=== PATIENT | female | born 1930 ===

== ENCOUNTER 2017-02-10 16:41 | Inpatient (IN) | payer OTHER ==
[2017-02-10 16:41] VITALS: BMI 27.4
[2017-02-10 17:50] LABS: ALB/GLOB RATIO 1.1 (1.0-2.1); ALBUMIN 3.6 g/dL (3.5-5.0); ALT/SGPT 149 U/L (9-52); AST/SGOT 271 U/L (14-36); BLOOD UREA NITROGEN 27 mg/dl (7-17); CALCIUM 9.2 mg/dL (8.4-10.2); GFR AFRICAN-AMERICAN 32; GFR NON-AFRICAN AMERICAN 27
[2017-02-10 18:20] LABS: LIPASE < 10 U/L (23-300)
[2017-02-10 18:30] LABS: HEMOGLOBIN 9.2 g/dL (12.0-16.0); MEAN CORPUSCULAR HEMOGLOBIN 26.8 pg (27.0-31.0); MEAN CORPUSCULAR HGB CONC 32.7 g/dL (33.0-37.0); MEAN PLATELET VOLUME 8.9 fl (7.2-11.7); PLATELET COUNT 213 K/uL (130-400); RBC 3.43 Mil/uL (3.80-5.20); RED CELL DISTRIBUTION WIDTH 17.9 % (11.5-14.5); WHITE BLOOD COUNT 3.4 K/uL (4.8-10.8)
[2017-02-10 19:19] LABS: INR 1.2 (0.9-1.2); PARTIAL THROMBOPLASTIN TIME 38.4 Seconds (25.6-37.1); PROTHROMBIN TIME 13.6 Seconds (9.8-13.1)
[2017-02-10 19:22] LABS: BANDS 2 % (0-2); EOSINOPHIL 7 % (0-7); LYMPHOCYTE 36 % (20-50); METAMYELOCYTE 1 % (0-0); MONOCYTE 29 % (0-10); MYELOCYTE 1 % (0-0); NEUTROPHIL 24 % (42-75); PLATELET ESTIMATE NORMAL (NORMAL)
[2017-02-10 19:23] LABS: ANISOCYTOSIS SLIGHT; LARGE PLATELETS PRESENT; MICROCYTOSIS SLIGHT; POIKILOCYTOSIS SLIGHT; SPHEROCYTES SLIGHT; TARGET CELLS SLIGHT
[2017-02-10 19:24] LABS: TOTAL CELLS COUNTED 100
--- NOTE | 2017-02-10 21:44 | ED PDOC ---
HPI: General Adult Time Seen by Provider: 02/10/17 20:54 Chief Complaint (Nursing): Weakness/Neurological Deficit Chief Complaint (Provider): weakness, jaundice x 3 days History Per: Patient, Family () History/Exam Limitations: no limitations Onset/Duration Of Symptoms: Days (x3 days) Current Symptoms Are (Timing): Still Present Additional Complaint(s): 86 y/o female with a past medical history of diabetes, hypertension, and mild dementia who presents to the emergency department accompanied by with a complaint of generalized weakness and jaundice x3 days. Associated with mild diffuse body aches and abdominal pain. As per history from , patient has appearing increasingly yellow and weak over the past several days whereas patient normal ambulates with walker or cane but now steadily declines and needs him to assist her, even when she needs to use the toilet. Reports mild loss of appetite. Denies fever, cough, shortness of breath, and chest pain. PMD: Dr. Celia Tijerina MD Past Medical History Reviewed: Historical Data, Nursing Documentation, Vital Signs Vital Signs: Last Vital Signs Temp 98.9 F 02/10/17 16:42 Pulse 79 02/10/17 18:38 Resp 14 02/10/17 18:38 BP 194/81 H 02/10/17 18:38 Pulse Ox 96 02/11/17 03:10 - Medical History PMH: Diabetes, HTN Denies: Alzheimer's Disease, Anemia, Anxiety, Arthritis, Asthma, Atrial Fibrillation, Bipolar Disorder, Bronchitis, CAD, Cardia Arrhythmia, CHF, COPD, Crohn's Disease, Dementia, Depression, Diverticulitis, Emphysema, Fractures, Gastritis, Gall Bladder Disease, HIV, Hypercholesterolemia, Hyperthyroidism, Hypothyroidism, Kidney Stones, Migraine, Mitral Valve Prolapse, Multiple Sclerosis, Osteoporosis, Pancreatitis, Paranoia, Parkinson's Disease, Peripheral Edema, Pneumonia, Post Traumatic Stress Disorder, Pulmonary Embolism , Chronic Kidney Disease, Rheumatoid Arthritis, Schizophrenia, Seizures, Sickle Cell Disease, Sexually Transmitted Disease, Sleep Apnea, TIA - Surgical History Surgical History: Appendectomy Denies: CABG, Carotid Endarterectomy, Cholecystectomy, Coronary Stent, Pacemaker, Tonsillectomy - Family History Family History: States: No Known Family Hx - Social History Current smoker - smoking cessation education provided: No Alcohol: None Drugs: Denies - Home Medications Home Medications: Ambulatory Orders Medication Instructions Recorded Furosemide [Furosemide] 20 mg PO DAILY 05/03/14 Glimepiride [Amaryl] 4 mg PO DAILY 05/03/14 Insulin Glargine,Hum.rec.anlog 10 unit SC DAILY #0 05/12/14 [Lantus] Enalapril Maleate [Vasotec] 10 mg PO DAILY 02/10/17 Folic Acid [Folic Acid] 1 mg PO DAILY 02/10/17 - Allergies Allergies/Adverse Reactions: Allergies Allergy/AdvReac Type Severity Reaction Status Date / Time No Known Allergies Allergy Verified 05/08/16 08:15 Review of Systems ROS Statement: Except As Marked, All Systems Reviewed And Found Negative Constitutional: Positive for: Weakness (Generalized and juandice), Other (Mild diffuse body pain (myalgias) and mild loss of appetite). Negative for: Fever Cardiovascular: Negative for: Chest Pain Respiratory: Negative for: Cough, Shortness of Breath Gastrointestinal: Positive for: Abdominal Pain Physical Exam - Reviewed Nursing Documentation Reviewed: Yes Vital Signs Reviewed: Yes - Physical Exam Appears: Positive for: Non-toxic, No Acute Distress Head Exam: Positive for: ATRAUMATIC, NORMAL INSPECTION, NORMOCEPHALIC Skin: Positive for: Warm, Dry, Jaundice (Extremely juandice) Eye Exam: Positive for: Other (Conjunctival is pallor. ). Negative for: Normal appearance Neck: Positive for: Normal, Supple Cardiovascular/Chest: Positive for: Regular Rate, Rhythm. Negative for: Murmur Respiratory: Positive for: Normal Breath Sounds. Negative for: Accessory Muscle Use, Respiratory Distress Gastrointestinal/Abdominal: Positive for: Normal Exam, Soft. Negative for: Tenderness Extremity: Positive for: Normal ROM. Negative for: Pedal Edema Neurologic/Psych: Positive for: Alert, Oriented (to person only. As per , it is normal for patient to only be oriented to person and sometimes forgets the date or place. ) - Laboratory Results Result Diagrams: 02/10/17 17:36 02/10/17 17:36 - ECG O2 Sat by Pulse Oximetry: 96 (RA) Pulse Ox Interpretation: Normal Medical Decision Making Medical Decision Making: Time: 2053 Initial impression: Clinical jaundice and weakness Initial plan: --ABO/RH Type STAT --Type and Screen STAT --VBG Shock Panel --Electrocardiogram STAT --Ammonia STAT --Lipase STAT --EKG-ED --AccuCheck --Urinalysis STAT --Abdomen Complete US --Admit to hospital routine on observation for hyperbilirubinemia labs sign for anemia and derangement in liver function test and renal insufficiency that has worsened since her last visit in May 2016. Time: 00:22 US Abdomen FINDINGS: Liver: Fatty infiltration. No mass. Mild intrahepatic ductal dilatation. Gallbladder: No gallstones. No wall thickening. No pericholecystic fluid. No sonographic Greer's sign. Common bile duct: Up to 1.2 cm in diameter. No stones. Pancreas: 4.2 x 4.7 x 3.6 cm hypoechoic lesion about head of pancreas. Kidneys: Normal echogenicity. No hydronephrosis. Spleen: No splenomegaly. Aorta: Unremarkable. No aneurysm. Inferior vena cava: Unremarkable. Free fluid: No significant free fluid. IMPRESSION: 1. Pancreatic lesion with biliary duct dilatation. Recommend MRI . 2. Incidental/non-acute findings are described above. --CXR: no acute disease noted. Time: 00:36 Upon provider reevaluation patient is medically stable and requires no further treatment in the ED at this time. Patient will be admitted to hospital. Counseling was provided and all questions were answered regarding diagnosis and need for follow up with Dr. Fermin, hospital medical records manager. There is agreement to discharge plan. Return if symptoms persist or worsen. Clinical Impression: Pancreatic mass; transaminitis; jaundice Scribe Attestation: Documented by Diana Rich, acting as a scribe for Kal Iniguez MD. Provider Scribe Attestation: All medical record entries made by the Scribe were at my direction and personally dictated by me. I have reviewed the chart and agree that the record accurately reflects my personal performance of the history, physical exam, medical decision making, and the department course for this patient. I have also personally directed, reviewed, and agree with the discharge instructions and disposition. ED OBSERVATION Date of observation admission: 02/10/17 Time of observation admission: 21:23 - Observation admission statement Patient is being placed in observation because:: hyperbilirubinemia - Goals of Observation Goals of observation are:: observation. Disposition - Clinical Impression Clinical Impression: Pancreatic mass, Hyperbilirubinemia, Elevated transaminase level, Jaundice - Patient ED Disposition Is Patient to be Admitted: Yes Discussed With : Cal Fermin Doctor Will See Patient In The: Hospital Counseled Patient/Family Regarding: Studies Performed, Diagnosis, Need For Followup - Disposition Disposition: Transfer of Care Disposition Time: 21:23 Condition: GUARDED - Pt Status Changed To: Hospital Disposition Of: Inpatient - Admit Certification Admit to Inpatient:: After my assessment, the patient will require hospitalization for at least two midnights. This is because of the severity of symptoms shown, intensity of services needed, and/or the medical risk in this patient being treated as an outpatient.
[2017-02-10 22:06] LABS: VENOUS BLOOD GAS BASE EXCESS 3.5 mmol/L (0.0-2.0); VENOUS BLOOD GAS PCO2 40 mmHg (40-60); VENOUS BLOOD GAS PO2 38 mm/Hg (30-55); VENOUS BLOOD PH 7.45 (7.32-7.43)
[2017-02-10 23:37] LABS: SQUAMOUS EPITHIAL 5 /hpf (0-5); URINE BACTERIA OCC (<OCC); URINE BILIRUBIN SMALL (NEGATIVE); URINE BLOOD NEGATIVE (NEGATIVE); URINE CLARITY SLIGHTY-CLOUDY (Clear); URINE COLOR AMBER (YELLOW); URINE GLUCOSE (UA) NEG (Normal); URINE LEUKOCYTE ESTERASE NEG Leu/uL (Negative); URINE NITRATE NEGATIVE (NEGATIVE); URINE PROTEIN 100 mg/dL (NEGATIVE); URINE UROBILINOGEN 0.2-1.0 mg/dL (0.2-1.0)
--- NOTE | 2017-02-11 00:22 | US ---
EXAM: US Abdomen Complete CLINICAL HISTORY: 86 years old, female; Pain and signs and symptoms; Constipation and other: Severe jaundice; Abdominal pain; Epigastric TECHNIQUE: Real-time ultrasound of the abdomen (complete) with image documentation. COMPARISON: No relevant prior studies available. FINDINGS: Liver: Fatty infiltration. No mass. Mild intrahepatic ductal dilatation. Gallbladder: No gallstones. No wall thickening. No pericholecystic fluid. No sonographic Greer's sign. Common bile duct: Up to 1.2 cm in diameter. No stones. Pancreas: 4.2 x 4.7 x 3.6 cm hypoechoic lesion about head of pancreas. Kidneys: Normal echogenicity. No hydronephrosis. Spleen: No splenomegaly. Aorta: Unremarkable. No aneurysm. Inferior vena cava: Unremarkable. Free fluid: No significant free fluid. IMPRESSION: 1. Pancreatic lesion with biliary duct dilatation. Recommend MRI . 2. Incidental/non-acute findings are described above.
--- NOTE | 2017-02-11 01:45 | CP.PCM.HP ---
History of Present Illness - History of Present Illness History of Present Illness: CC: jaundice, malaise, weakness (History via , patient is Japanese speaking) HPI: 86 y/o female with HTN and DM2 among other conditions who presents with jaundice and malaise/weakness. Symptoms started about 3 d ago. There is no n/v/ d. There is no f/c. Patient has never had these symptoms prior. Nothing makes symptoms better or worse. Patient has had some abd pain, but not at this time. Patient/ provide no other history at this time. ROS: minimal review of systems, no positives other than what is above MHx: HTN, DM2 SHx: Hysterectomy Allergies: ?Metformin Medications: As per med rec Family Hx: Per no cancers running in family Social Hx: Lives with , no tobacco, no EtOH Surrogate: Lexa Hall, Present on Admission - Present on Admission Any Indicators Present on Admission: No Past Patient History - Infectious Disease Hx of Infectious Diseases: None - Tetanus Immunizations Tetanus Immunization: Unknown - Past Medical History & Family History Past Medical History?: Yes - Past Social History Alcohol: None Drugs: Denies - CARDIAC Hx Atrial Fibrillation: No Hx Cardia Arrhythmia: No Hx Congestive Heart Failure: No Hx Hypercholesterolemia: No Hx Hypertension: Yes Hx Mitral Valve Prolapse: No Hx Pacemaker: No Hx Peripheral Edema: No - PULMONARY Hx Asthma: No Hx Bronchitis: No Hx Chronic Obstructive Pulmonary Disease (COPD): No Hx Emphysema: No Hx Pneumonia: No Hx Pulmonary Embolism: No Hx Sleep Apnea: No - NEUROLOGICAL Hx Alzheimer's Disease: No Hx Dementia: No Hx Migraine: No Hx Multiple Sclerosis: No Hx Parkinson's Disease: No Hx Seizures: No Hx Transient Ischemic Attacks (TIA): No - HEENT Hx HEENT Problems: Yes Hx Blind: No Hx Cataracts: Yes Hx Deafness: No Hx Difficulty Chewing: No Hx Epistaxis: No Hx Glaucoma: No Hx Macular Degeneration: No - RENAL Hx Chronic Kidney Disease: No Hx Kidney Stones: No - ENDOCRINE/METABOLIC Hx Hyperthyroidism: No Hx Hypothyroidism: No - HEMATOLOGICAL/ONCOLOGICAL Hx Anemia: No Hx Human Immunodeficiency Virus (HIV): No Hx Sickle Cell Disease: No - INTEGUMENTARY Hx Dermatological Problems: No Hx Basil Cell: No Hx Dubon: No Hx Cellulitis: No Hx Eczema: No Hx Melanoma: No Hx Psoriasis: No Hx Squamous Cell: No - MUSCULOSKELETAL/RHEUMATOLOGICAL Hx Arthritis: No Hx Fractures: No Hx Osteoporosis: No Hx Rheumatoid Arthritis: No - GASTROINTESTINAL Hx Crohn's Disease: No Hx Diverticulitis: No Hx Gall Bladder Disease: No Hx Gastritis: No Hx Pancreatitis: No - GENITOURINARY/GYNECOLOGICAL Hx Sexually Transmitted Disorders: No - PSYCHIATRIC Hx Anxiety: No Hx Bipolar Disorder: No Hx Depression: No Hx Paranoia: No Hx Post Traumatic Stress Disorder: No Hx Schizophrenia: No - SURGICAL HISTORY Hx Appendectomy: Yes Hx Carotid Endarterectomy: No Hx Cholecystectomy: No Hx Coronary Artery Bypass Graft: No Hx Coronary Stent: No Hx Tonsillectomy: No - ANESTHESIA Hx Anesthesia: Yes Hx Anesthesia Reactions: No Hx Malignant Hyperthermia: No Meds Allergies/Adverse Reactions: Allergies Allergy/AdvReac Type Severity Reaction Status Date / Time No Known Allergies Allergy Verified 05/08/16 08:15 Physical Exam - Constitutional Appears: No Acute Distress, Cachectic - Head Exam Head Exam: ATRAUMATIC, NORMOCEPHALIC - Eye Exam Eye Exam: EOMI, PERRL - ENT Exam ENT Exam: Mucous Membranes Dry - Neck Exam Neck exam: Positive for: Full Rom - Respiratory Exam Respiratory Exam: Clear to Auscultation Bilateral, NORMAL BREATHING PATTERN - Cardiovascular Exam Cardiovascular Exam: REGULAR RHYTHM, +S1, +S2 - GI/Abdominal Exam GI & Abdominal Exam: Normal Bowel Sounds, Soft - Extremities Exam Extremities exam: Positive for: full ROM, normal inspection, pedal edema - Neurological Exam Neurological exam: Alert, CN II-XII Intact, Oriented x3 - Psychiatric Exam Psychiatric exam: Normal Affect, Normal Mood - Skin Skin Exam: Dry, Warm Additional comments: jaundice Results - Vital Signs Recent Vital Signs: Last Vital Signs Temp 98.9 F 02/10/17 16:42 Pulse 79 02/10/17 18:38 Resp 14 02/10/17 18:38 BP 194/81 H 02/10/17 18:38 Pulse Ox 96 02/11/17 01:00 - Labs Result Diagrams: 02/10/17 17:36 02/10/17 17:36 - Imaging and Cardiology US - abdomen Status: Report reviewed by me (pancreatic lesion, ductal dilation) Assessment & Plan (1) Obstructive jaundice Assessment and Plan: 86 y/o female presenting with pancreatic mass and obstructive jaundice. Also with ARF. 1) Pancreatic mass/obstructive jaundice -- highly suspicious for malignancy -Will order AFP and [id number] -repeat CMP in AM -GI consult in AM -- will likely need MRCP vs. ERCP 2) Acute on possible chronic renal failure -- possibly due to volume depletion -IVF -UA/Lytes/Cr -dose medications renally -Hold minerva/arbs, metformin 3) HTN -- will hold minerva/arbs for now 4) DM2 -- hold metformin; accuchecks achs, SSI, DM diet 5) DVT PPx -- SQ heparin Status: Acute (2) Type 2 diabetes mellitus Status: Chronic Priority: Medium (3) Hypertension Status: Chronic Priority: Medium (4) DVT prophylaxis Status: Acute
[2017-02-11] MEDS: Sodium Chloride 0.9% 1,000 ML IV SCH (03:10)
[2017-02-11 04:05] LABS: SQUAMOUS EPITHIAL 8 /hpf (0-5); URINE BACTERIA RARE (<OCC); URINE BILIRUBIN NEGATIVE (NEGATIVE); URINE BLOOD NEGATIVE (NEGATIVE); URINE CLARITY SLIGHTY-CLOUDY (Clear); URINE COLOR AMBER (YELLOW); URINE GLUCOSE (UA) NEG (Normal); URINE LEUKOCYTE ESTERASE NEG Leu/uL (Negative); URINE NITRATE NEGATIVE (NEGATIVE); URINE PROTEIN 30 mg/dL (NEGATIVE); URINE UROBILINOGEN 0.2-1.0 mg/dL (0.2-1.0)
[2017-02-11 06:29] LABS: HEMOGLOBIN 8.6 g/dL (12.0-16.0); MEAN CELL VOLUME 81.2 fl (81.0-99.0); MEAN CORPUSCULAR HEMOGLOBIN 27.1 pg (27.0-31.0); MEAN CORPUSCULAR HGB CONC 33.4 g/dL (33.0-37.0); RBC 3.19 Mil/uL (3.80-5.20); RED CELL DISTRIBUTION WIDTH 17.8 % (11.5-14.5)
[2017-02-11 06:39] LABS: ALBUMIN 3.2 g/dL (3.5-5.0)
[2017-02-11 06:42] LABS: ALB/GLOB RATIO 0.9 (1.0-2.1)
[2017-02-11 06:43] LABS: CALCIUM 9.2 mg/dL (8.4-10.2)
--- NOTE | 2017-02-11 08:06 | CARD ---
APPROVED REPORT EKG Measurement Heart [id number] <Conclusion> Normal sinus rhythm Left anterior fascicular block Abnormal ECG
[2017-02-11] MEDS: Insulin Lispro (humaLOG) 100 Units/ml Inj SC SCH ×2 (08:46→11:07)
--- NOTE | 2017-02-11 10:30 | RAD ---
HISTORY: admit COMPARISON: 05/03/2014. FINDINGS: LUNGS: The lungs are clear. PLEURA: No significant pleural effusion identified, no pneumothorax apparent. CARDIOVASCULAR: Normal. OSSEOUS STRUCTURES: No significant abnormalities. VISUALIZED UPPER ABDOMEN: Normal. OTHER FINDINGS: None. IMPRESSION: No active pulmonary disease.
--- NOTE | 2017-02-11 12:44 | CP.PCM.CON ---
<Leopoldo Parra - Last Filed: 02/11/17 16:10> History of Present Illness - History of Present Illness History of Present Illness: PGY5 GI Fellow Consult Note Patient is an 86yo female with PMHx significant for uterine cancer s/p hysterecotmy and XRT, prior lumbar compression fx, DM, HTN and OA who presented to the ED with her for generalized weakness and new onset jaundice. Patient is only able to provide a very limited history and is rather lethargic at this time, though arousable. Her daughter is at bedside and unsure about her mother's medical history and thus history is limited to the EMR and what I can obtain at bedside. The patient states that for the past 4 days she has had generalized weakness and malaise. She notes that 3 days [employer] her skin began to change color, becomming more jaundiced each day until her brought her to the ED for further evaluation. She denies any samara abdominal discomfort, nausea, vomiting, diarrhea or recent illness. She denies recent travel. On arrival, an U/S of the abdomen revealed a 4.2x4.7x3.6 lesion in the pancreatic head. An MRCP is pending at this time. PMHx: See HPI PSHx: Appendectomy, hysterectomy FHx: Discussed with patient and she denies any significant family history Social: Denies tobacco, EtOH or illicit drug use Endo: Patient/daughter deny/unsure of prior endoscopic evaluation Review of Systems - Review of Systems Systems not reviewed;Unavailable: Altered Mental Status - Constitutional Constitutional: Lethargy, Malaise. absent: Chills, Fever - EENT Eyes: absent: Change in Vision Nose/Mouth/Throat: absent: Sore Throat - Cardiovascular Cardiovascular: absent: Chest Pain, Dyspnea - Respiratory Respiratory: absent: Cough, Excessive Mucous Production - Gastrointestinal Gastrointestinal: absent: Abdominal Pain, Nausea, Vomiting - Genitourinary Genitourinary: absent: Dysuria, Urinary Frequency, Urinary Urgency - Musculoskeletal Musculoskeletal: Muscle Weakness, Myalgias - Integumentary Integumentary: absent: New Lesions, Rash - Neurological Neurological: absent: Dizziness, Numbness, Focal Weakness - Psychiatric Psychiatric: absent: Anxiety, Depression - Endocrine Endocrine: absent: Polydipsia, Polyphagia, Polyuria - Hematologic/Lymphatic Hematologic: absent: Easy Bleeding, Easy Bruising, Lymphadenopathy Past Patient History - Infectious Disease Hx of Infectious Diseases: None - Tetanus Immunizations Tetanus Immunization: Unknown - Past Medical History & Family History Past Medical History?: Yes - Past Social History Alcohol: None Drugs: Denies - CARDIAC Hx Atrial Fibrillation: No Hx Cardia Arrhythmia: No Hx Congestive Heart Failure: No Hx Hypercholesterolemia: No Hx Hypertension: Yes Hx Mitral Valve Prolapse: No Hx Pacemaker: No Hx Peripheral Edema: No - PULMONARY Hx Asthma: No Hx Bronchitis: No Hx Chronic Obstructive Pulmonary Disease (COPD): No Hx Emphysema: No Hx Pneumonia: No Hx Pulmonary Embolism: No Hx Sleep Apnea: No - NEUROLOGICAL Hx Alzheimer's Disease: No Hx Dementia: No Hx Migraine: No Hx Multiple Sclerosis: No Hx Parkinson's Disease: No Hx Seizures: No Hx Transient Ischemic Attacks (TIA): No - HEENT Hx HEENT Problems: Yes Hx Blind: No Hx Cataracts: Yes Hx Deafness: No Hx Difficulty Chewing: No Hx Epistaxis: No Hx Glaucoma: No Hx Macular Degeneration: No - RENAL Hx Chronic Kidney Disease: No Hx Kidney Stones: No - ENDOCRINE/METABOLIC Hx Hyperthyroidism: No Hx Hypothyroidism: No - HEMATOLOGICAL/ONCOLOGICAL Hx Anemia: No Hx Human Immunodeficiency Virus (HIV): No Hx Sickle Cell Disease: No - INTEGUMENTARY Hx Dermatological Problems: No Hx Basil Cell: No Hx Dubon: No Hx Cellulitis: No Hx Eczema: No Hx Melanoma: No Hx Psoriasis: No Hx Squamous Cell: No - MUSCULOSKELETAL/RHEUMATOLOGICAL Hx Arthritis: No Hx Fractures: No Hx Osteoporosis: No Hx Rheumatoid Arthritis: No - GASTROINTESTINAL Hx Crohn's Disease: No Hx Diverticulitis: No Hx Gall Bladder Disease: No Hx Gastritis: No Hx Pancreatitis: No - GENITOURINARY/GYNECOLOGICAL Hx Sexually Transmitted Disorders: No - PSYCHIATRIC Hx Anxiety: No Hx Bipolar Disorder: No Hx Depression: No Hx Paranoia: No Hx Post Traumatic Stress Disorder: No Hx Schizophrenia: No - SURGICAL HISTORY Hx Appendectomy: Yes Hx Carotid Endarterectomy: No Hx Cholecystectomy: No Hx Coronary Artery Bypass Graft: No Hx Coronary Stent: No Hx Tonsillectomy: No - ANESTHESIA Hx Anesthesia: Yes Hx Anesthesia Reactions: No Hx Malignant Hyperthermia: No Meds Allergies/Adverse Reactions: Allergies Allergy/AdvReac Type Severity Reaction Status Date / Time No Known Allergies Allergy Verified 05/08/16 08:15 - Medications Medications: Current Medications Amlodipine Besylate (Norvasc) 10 mg PO DAILY [facility] Last Admin: 02/11/17 09:08 Dose: 10 mg Heparin Sodium (Porcine) (Heparin) 5,000 units SC Q12 [facility] PRN Reason: Protocol Last Admin: 02/11/17 11:06 Dose: 5,000 units Sodium Chloride (Sodium Chloride 0.9%) 1,000 mls @ 100 mls/hr IV .Q10H [facility] Stop: 02/11/17 21:44 Last Admin: 02/11/17 03:10 Dose: 100 mls/hr Insulin Human Lispro (Humalog) 0 units SC ACHS [facility] PRN Reason: Protocol Last Admin: 02/11/17 08:46 Dose: Not Given Morphine Sulfate (Morphine) 1 mg IVP Q4 PRN PRN Reason: Pain, severe (8-10) Ondansetron HCl (Zofran Inj) 4 mg IVP Q6 PRN PRN Reason: Nausea/Vomiting Physical Exam - Constitutional Appears: Non-toxic, No Acute Distress, Confused - Eye Exam Eye Exam: EOMI, PERRL, Scleral icterus - Respiratory Exam Respiratory Exam: Clear to Auscultation Bilateral. absent: Rales, Rhonchi, Wheezes - Cardiovascular Exam Cardiovascular Exam: RRR, +S1, +S2, Systolic Murmur - GI/Abdominal Exam GI & Abdominal Exam: Normal Bowel Sounds, Soft, Tenderness (RUQ). absent: Distended, Firm, Guarding, Organomegaly, Rigid - Extremities Exam Additional comments: 2+ B/L LE edema - Neurological Exam Neurological exam: Altered - Skin Skin Exam: Dry, Warm Additional comments: jaundice Results - Vital Signs Recent Vital Signs: Last Vital Signs Temp 98.9 F 02/11/17 08:28 Pulse 75 02/11/17 10:40 Resp 16 02/11/17 10:40 BP 152/55 H 02/11/17 10:40 Pulse Ox 96 02/11/17 10:40 - Labs Result Diagrams: 02/11/17 06:00 02/11/17 06:00 Labs: Laboratory Results - last 24 hr 02/11/17 02/11/17 02/11/17 03:40 03:46 06:00 WBC 3.0 L RBC 3.19 L Hgb 8.6 L Hct 25.9 L MCV 81.2 MCH 27.1 MCHC 33.4 RDW 17.8 H Plt Count 220 Sodium Potassium Chloride Carbon Dioxide Anion Gap BUN Creatinine Est GFR ( Amer) Est GFR (Non-Af Amer) POC Glucose (mg/dL) 85 Random Glucose Calcium Total Bilirubin AST ALT Alkaline Phosphatase Total Protein Albumin Globulin Albumin/Globulin Ratio Alpha Fetoprotein Urine Color Sadie Urine Clarity Slighty-cloudy Urine pH 6.0 Ur Specific [place] 1.005 Urine Protein 30 Urine Glucose (UA) Neg Urine Ketones Negative Urine Blood Negative Urine Nitrate Negative Urine Bilirubin Negative Urine Urobilinogen 0.2-1.0 Ur Leukocyte Esterase Neg Urine RBC (Auto) 1 Urine Microscopic WBC 1 Ur Squamous Epith Cells 8 H Urine Bacteria Rare 02/11/17 02/11/17 02/11/17 06:00 06:00 08:14 WBC RBC Hgb Hct MCV MCH MCHC RDW Plt Count Sodium 140 Potassium 4.3 Chloride 106 Carbon Dioxide 26 Anion Gap 13 BUN 26 H Creatinine 1.7 H Est GFR ( Amer) 35 Est GFR (Non-Af Amer) 29 POC Glucose (mg/dL) 119 H Random Glucose 91 Calcium 9.2 Total Bilirubin 23.9 H AST 242 H ALT 136 H Alkaline Phosphatase 906 H Total Protein 6.9 Albumin 3.2 L Globulin 3.7 Albumin/Globulin Ratio 0.9 L Alpha Fetoprotein 1.2 Urine Color Urine Clarity Urine pH Ur Specific [place] Urine Protein Urine Glucose (UA) Urine Ketones Urine Blood Urine Nitrate Urine Bilirubin Urine Urobilinogen Ur Leukocyte Esterase Urine RBC (Auto) Urine Microscopic WBC Ur Squamous Epith Cells Urine Bacteria Assessment & Plan - Assessment and Plan (Free Text) Assessment: Patient is an 86yo female with PMHx significant for DM, HTN and OA who presented to the ED with her for generalized weakness and new onset jaundice -Altered mentation -Pancreatic head lesion on imaging, concerning for malignancy -Obstructive jaundice suspected/hyperbilirubinemia -DM -HTN Plan: -Unclear history; per record, h/o endometrial cancer s/p hysterectomy and XRT -Awaiting MRCP; apparent pancreatic head lesion noted on U/S -Clear liquid diet as tolerated -Vital stable at this time -Check Autoimmune w/u: BINU, AMA, SMA, LKM-Ab -Check Hepatitis serologies -Plan for EUS with FNB/ERCP on Saturday -Consider CT head given AMS - Date & Time Date: 02/11/17 Time: 12:50 <Marietta Jones MD - Last Filed: 02/11/17 16:23> Meds - Medications Medications: Current Medications Amlodipine Besylate (Norvasc) 10 mg PO DAILY [facility] Last Admin: 02/11/17 09:08 Dose: 10 mg Heparin Sodium (Porcine) (Heparin) 5,000 units SC Q12 [facility] PRN Reason: Protocol Last Admin: 02/11/17 11:06 Dose: 5,000 units Sodium Chloride (Sodium Chloride 0.9%) 1,000 mls @ 100 mls/hr IV .Q10H [facility] Stop: 02/11/17 21:44 Last Admin: 02/11/17 03:10 Dose: 100 mls/hr Insulin Human Lispro (Humalog) 0 units SC ACHS [facility] PRN Reason: Protocol Last Admin: 02/11/17 08:46 Dose: Not Given Morphine Sulfate (Morphine) 1 mg IVP Q4 PRN PRN Reason: Pain, severe (8-10) Ondansetron HCl (Zofran Inj) 4 mg IVP Q6 PRN PRN Reason: Nausea/Vomiting Results - Vital Signs Recent Vital Signs: Last Vital Signs Temp 98.9 F 02/11/17 08:28 Pulse 73 02/11/17 14:28 Resp 16 02/11/17 14:28 BP 138/58 L 02/11/17 14:28 Pulse Ox 95 02/11/17 13:59 - Labs Result Diagrams: 02/11/17 06:00 02/11/17 06:00 Labs: Laboratory Results - last 24 hr 02/11/17 02/11/17 02/11/17 03:40 03:46 06:00 WBC 3.0 L RBC 3.19 L Hgb 8.6 L Hct 25.9 L MCV 81.2 MCH 27.1 MCHC 33.4 RDW 17.8 H Plt Count 220 Sodium Potassium Chloride Carbon Dioxide Anion Gap BUN Creatinine Est GFR ( Amer) Est GFR (Non-Af Amer) POC Glucose (mg/dL) 85 Random Glucose Calcium Total Bilirubin AST ALT Alkaline Phosphatase Total Protein Albumin Globulin Albumin/Globulin Ratio Alpha Fetoprotein Urine Color Sadie Urine Clarity Slighty-cloudy Urine pH 6.0 Ur Specific [place] 1.005 Urine Protein 30 Urine Glucose (UA) Neg Urine Ketones Negative Urine Blood Negative Urine Nitrate Negative Urine Bilirubin Negative Urine Urobilinogen 0.2-1.0 Ur Leukocyte Esterase Neg Urine RBC (Auto) 1 Urine Microscopic WBC 1 Ur Squamous Epith Cells 8 H Urine Bacteria Rare 02/11/17 02/11/17 02/11/17 06:00 06:00 08:14 WBC RBC Hgb Hct MCV MCH MCHC RDW Plt Count Sodium 140 Potassium 4.3 Chloride 106 Carbon Dioxide 26 Anion Gap 13 BUN 26 H Creatinine 1.7 H Est GFR ( Amer) 35 Est GFR (Non-Af Amer) 29 POC Glucose (mg/dL) 119 H Random Glucose 91 Calcium 9.2 Total Bilirubin 23.9 H AST 242 H ALT 136 H Alkaline Phosphatase 906 H Total Protein 6.9 Albumin 3.2 L Globulin 3.7 Albumin/Globulin Ratio 0.9 L Alpha Fetoprotein 1.2 Urine Color Urine Clarity Urine pH Ur Specific [place] Urine Protein Urine Glucose (UA) Urine Ketones Urine Blood Urine Nitrate Urine Bilirubin Urine Urobilinogen Ur Leukocyte Esterase Urine RBC (Auto) Urine Microscopic WBC Ur Squamous Epith Cells Urine Bacteria Attending/Attestation - Attestation I have personally seen and examined this patient.: Yes I have fully participated in the care of the patient.: Yes I have reviewed all pertinent clinical information: Yes Notes (Text): 02/11/17 16:21 Patient seen on Gi rounds. This is a 86yo female with PMHx significant for DM, HTN and OA who presented to the ED with her for generalized weakness and new onset jaundice with AMS. Pancreatic lesion on sonogram concerning for pancreatic malignancy pending CT pancreatic protocol. Awaiting MRCP and plan for EUS/ ERCP on saturday. Will send hepatitis and autoimmune serologies. Regular diet as tolerated. Needs CT head in setting of new AMS.
--- NOTE | 2017-02-11 15:54 | MRI ---
PROCEDURE: Magnetic Resonance Cholangiopancreatography HISTORY: Jaundice and pancreatic lesion COMPARISON: Comparison is made to the previous CT study dated 05/03/2014 previous ultrasound of the abdomen dated 02/10/2017. TECHNIQUE: Multiplanar, multisequence MR images of the abdomen were obtained, including heavily T2 weighted MRCP images of the biliary system. Rotating maximum intensity projection images of the biliary system were generated. FINDINGS: MRCP: The common bile duct is mildly dilated at the proximal and midportion. There is sharp cut off in the common bile duct due to pancreatic head mass. There is mild to moderate intrahepatic biliary ductal dilatation. LIVER: The liver is prominent in size demonstrate heterogeneous signal without evidence of discrete mass lesion in this limited noncontrast study. GALLBLADDER: The gallbladder is mildly dilated without evidence of acute cholecystitis or cholelithiasis. SPLEEN: Unremarkable. PANCREAS: Pancreatic head mass is seen measures approximately 4.6 x 4 centimeter and extending to the melissa hepatis region. The pancreatic mass compressing and obstructing the distal CBD. This mass also cannot be from the portal vein. There are severe atrophic changes of the pancreatic body and tail associated with [id number] dilate a figueroa of the main pancreatic duct. ADRENALS: Unremarkable. KIDNEYS: No evidence of hydronephrosis. Cystic lesions seen in both kidneys larger on the right. AORTA: No aneurysm. ASCITES: There is a trace amount of ascites in the upper abdomen. OTHER FINDINGS: Bilateral small pleural effusion larger on the right are also noted. IMPRESSION: Approximately 4.6 x 4 centimeter mass lesion at the pancreatic head compressing on and obstructing the distal common bile duct. [id number] dilated proximal CBD and [id number] intrahepatic biliary ductal dilatation due to obstruction of the distal CBD by pancreatic head mass. The assessment of the upper abdomen solid organs is somewhat limited in this study due to patient's motion and lack of IV contrast administration.
[2017-02-11] MEDS: Morphine 4 MG/ML VIAL IVP PRN (20:32)
[2017-02-11 22:03] LABS: HEPATITIS B SURFACE AG NEGATIVE (NEGATIVE)
[2017-02-11 22:08] LABS: HEPATITIS A IGM NEGATIVE (NEGATIVE)
[2017-02-11 22:10] LABS: HEPATITIS B CORE AB NEGATIVE (NEGATIVE)
[2017-02-11 22:21] LABS: HEPATITIS C ANTIBODY NEGATIVE (NEGATIVE)
[2017-02-12] MEDS: Insulin Lispro (humaLOG) 100 Units/ml Inj SC SCH ×6 (00:19→22:18)
[2017-02-12] MEDS: Sodium Chloride 0.9% 1,000 ML IV SCH (00:19)
[2017-02-12 07:25] LABS: INR 1.5 (0.9-1.2); PROTHROMBIN TIME 16.7 Seconds (9.8-13.1)
[2017-02-12 07:32] LABS: ALBUMIN 3.3 g/dL (3.5-5.0); BILIRUBIN,DIRECT 21.7 mg/ml (0.0-0.4); CALCIUM 8.8 mg/dL (8.4-10.2)
[2017-02-12 08:00] LABS: EOS # 0.1 K/uL (0.0-0.7); EOS % 1.6 % (0.0-4.0); HEMOGLOBIN 8.6 g/dL (12.0-16.0); LYMPH # 2.2 K/uL (1.0-4.3); LYMPH % 68.7 % (20.0-40.0); MEAN CELL VOLUME 82.9 fl (81.0-99.0); MEAN CORPUSCULAR HEMOGLOBIN 27.4 pg (27.0-31.0); MEAN PLATELET VOLUME 8.7 fl (7.2-11.7); MONO # 0.6 K/uL (0.0-0.8); MONO % 17.6 % (0.0-10.0); NEUT # 0.4 K/uL (1.8-7.0); NEUT % 12.1 % (50.0-75.0); NRBC % 0.1 % (0.0-0.0); PLATELET COUNT 236 K/uL (130-400); RBC 3.15 Mil/uL (3.80-5.20); RED CELL DISTRIBUTION WIDTH 18.3 % (11.5-14.5); WHITE BLOOD COUNT 3.2 K/uL (4.8-10.8)
[2017-02-12] MEDS: Morphine 4 MG/ML VIAL IVP PRN ×2 (09:23→14:39)
--- NOTE | 2017-02-12 09:28 | CT ---
PROCEDURE: CT HEAD WITHOUT CONTRAST. HISTORY: AMS COMPARISON: 05/13/2013 TECHNIQUE: Axial computed tomography images were obtained through the head/brain without intravenous contrast. Radiation dose: Total exam DLP = 1185.25 mGy-cm. This CT exam was performed using one or more of the following dose reduction techniques: Automated exposure control, adjustment of the mA and/or kV according to patient size, and/or use of iterative reconstruction technique. FINDINGS: Examination limited secondary to patient inability to cooperate for proper positioning. HEMORRHAGE: No intracranial hemorrhage. BRAIN: No mass effect or edema. Minimal diffuse atrophy less than expected for patient age. Moderate periventricular white matter lucency consistent with age-related microvascular ischemic change. This is slightly increased in extent when compared to prior examination. VENTRICLES: Mild ventriculomegaly likely due to central greater than peripheral atrophy. No change in extent when compared to prior CT examination. No midline shift. CALVARIUM: Unremarkable. PARANASAL SINUSES: Unremarkable as visualized. No significant inflammatory changes. MASTOID AIR CELLS: Unremarkable as visualized. No inflammatory changes. OTHER FINDINGS: None. IMPRESSION: No intracranial mass, hemorrhage or evidence of acute infarct. Chronic white matter ischemic change. Minimal atrophy.
--- NOTE | 2017-02-12 09:35 | CP.PCM.CON ---
History of Present Illness - History of Present Illness History of Present Illness: This patient who is a 26 a few years of age admitted with severe jaundice I was called to see her for abnormal creatinine 1.5-1.6. No history available from the patient however the history from the chart reviewed and the patient examined and the son and the bedside. The son stated that she has been sick for more than a week or serum by changing Color. No history of chronic kidney disease Past medical history and social history as noted in the history and physical examination Review of system as noted with severe jaundice no chest pain complaining of abdominal discomfort Review of Systems - Constitutional Constitutional: absent: Chills - EENT Eyes: As Per HPI Nose/Mouth/Throat: As Per HPI - Cardiovascular Cardiovascular: absent: Chest Pain, Dyspnea, Leg Edema - Respiratory Respiratory: absent: Cough, Dyspnea - Gastrointestinal Gastrointestinal: Abdominal Pain, Bloating, Nausea - Genitourinary Genitourinary: Nocturia - Musculoskeletal Musculoskeletal: Abnormal Gait - Neurological Neurological: As Per HPI Past Patient History - Infectious Disease Hx of Infectious Diseases: None - Tetanus Immunizations Tetanus Immunization: Unknown - Past Medical History & Family History Past Medical History?: Yes - Past Social History Alcohol: None Drugs: Denies - CARDIAC Hx Atrial Fibrillation: No Hx Cardia Arrhythmia: No Hx Congestive Heart Failure: No Hx Hypercholesterolemia: No Hx Hypertension: Yes Hx Mitral Valve Prolapse: No Hx Pacemaker: No Hx Peripheral Edema: No - PULMONARY Hx Asthma: No Hx Bronchitis: No Hx Chronic Obstructive Pulmonary Disease (COPD): No Hx Emphysema: No Hx Pneumonia: No Hx Pulmonary Embolism: No Hx Sleep Apnea: No - NEUROLOGICAL Hx Alzheimer's Disease: No Hx Dementia: No Hx Migraine: No Hx Multiple Sclerosis: No Hx Parkinson's Disease: No Hx Seizures: No Hx Transient Ischemic Attacks (TIA): No - HEENT Hx HEENT Problems: Yes Hx Blind: No Hx Cataracts: Yes Hx Deafness: No Hx Difficulty Chewing: No Hx Epistaxis: No Hx Glaucoma: No Hx Macular Degeneration: No - RENAL Hx Chronic Kidney Disease: No Hx Kidney Stones: No - ENDOCRINE/METABOLIC Hx Hyperthyroidism: No Hx Hypothyroidism: No - HEMATOLOGICAL/ONCOLOGICAL Hx Anemia: No Hx Human Immunodeficiency Virus (HIV): No Hx Sickle Cell Disease: No - INTEGUMENTARY Hx Dermatological Problems: No Hx Basil Cell: No Hx Dubon: No Hx Cellulitis: No Hx Eczema: No Hx Melanoma: No Hx Psoriasis: No Hx Squamous Cell: No - MUSCULOSKELETAL/RHEUMATOLOGICAL Hx Arthritis: No Hx Fractures: No Hx Osteoporosis: No Hx Rheumatoid Arthritis: No - GASTROINTESTINAL Hx Crohn's Disease: No Hx Diverticulitis: No Hx Gall Bladder Disease: No Hx Gastritis: No Hx Pancreatitis: No - GENITOURINARY/GYNECOLOGICAL Hx Sexually Transmitted Disorders: No - PSYCHIATRIC Hx Anxiety: No Hx Bipolar Disorder: No Hx Depression: No Hx Paranoia: No Hx Post Traumatic Stress Disorder: No Hx Schizophrenia: No - SURGICAL HISTORY Hx Appendectomy: Yes Hx Carotid Endarterectomy: No Hx Cholecystectomy: No Hx Coronary Artery Bypass Graft: No Hx Coronary Stent: No Hx Tonsillectomy: No - ANESTHESIA Hx Anesthesia: Yes Hx Anesthesia Reactions: No Hx Malignant Hyperthermia: No Meds Allergies/Adverse Reactions: Allergies Allergy/AdvReac Type Severity Reaction Status Date / Time No Known Allergies Allergy Verified 05/08/16 08:15 - Medications Medications: Current Medications Amlodipine Besylate (Norvasc) 10 mg PO DAILY [facility] Last Admin: 02/12/17 09:30 Dose: 10 mg Atenolol (Tenormin) 25 mg PO DAILY [facility] Heparin Sodium (Porcine) (Heparin) 5,000 units SC Q12 [facility] PRN Reason: Protocol Last Admin: 02/12/17 09:29 Dose: 5,000 units Insulin Human Lispro (Humalog) 0 units SC ACHS [facility] PRN Reason: Protocol Last Admin: 02/12/17 08:30 Dose: Not Given Morphine Sulfate (Morphine) 1 mg IVP Q4 PRN PRN Reason: Pain, severe (8-10) Last Admin: 02/12/17 09:23 Dose: 1 mg Ondansetron HCl (Zofran Inj) 4 mg IVP Q6 PRN PRN Reason: Nausea/Vomiting Physical Exam - Constitutional Appears: No Acute Distress - ENT Exam ENT Exam: Mucous Membranes Moist - Respiratory Exam Respiratory Exam: NORMAL BREATHING PATTERN. absent: Chest Wall Tenderness, Rales - Cardiovascular Exam Cardiovascular Exam: REGULAR RHYTHM. absent: Rubs - GI/Abdominal Exam GI & Abdominal Exam: Guarding - Extremities Exam Extremities exam: Negative for: calf tenderness - Back Exam Back exam: absent: CVA tenderness (L), CVA tenderness (R) - Neurological Exam Neurological exam: Altered Results - Vital Signs Recent Vital Signs: Last Vital Signs Temp 98.7 F 02/12/17 08:46 Pulse 79 02/12/17 09:30 Resp 20 02/12/17 08:46 BP 177/65 H 02/12/17 09:30 Pulse Ox 97 02/12/17 08:46 - Labs Result Diagrams: 02/12/17 06:50 02/12/17 06:50 Labs: Laboratory Results - last 24 hr 02/11/17 02/11/17 02/11/17 06:00 06:00 18:29 WBC RBC Hgb Hct MCV MCH MCHC RDW Plt Count MPV Neut % (Auto) Lymph % (Auto) [place] % (Auto) Eos % (Auto) Baso % (Auto) Neut # Lymph # [place] # Eos # Baso # PT INR Sodium Potassium Chloride Carbon Dioxide Anion Gap BUN Creatinine Est GFR ( Amer) Est GFR (Non-Af Amer) POC Glucose (mg/dL) 113 H Random Glucose Calcium Total Bilirubin Direct Bilirubin AST ALT Alkaline Phosphatase Total Protein Albumin Globulin Albumin/Globulin Ratio Alpha Fetoprotein 1.2 CA 19-9 Antigen 951 H Hepatitis A IgM Ab Hep Bs Antigen Hep B Core IgM Ab Hepatitis C Antibody 02/11/17 02/12/17 02/12/17 18:41 06:50 06:50 WBC RBC Hgb Hct MCV MCH MCHC RDW Plt Count MPV Neut % (Auto) Lymph % (Auto) [place] % (Auto) Eos % (Auto) Baso % (Auto) Neut # Lymph # [place] # Eos # Baso # PT 16.7 H INR 1.5 H Sodium 142 Potassium 4.3 Chloride 108 H Carbon Dioxide 19 L Anion Gap 19 BUN 25 H Creatinine 1.6 H Est GFR ( Amer) 37 Est GFR (Non-Af Amer) 31 POC Glucose (mg/dL) Random Glucose 112 H Calcium 8.8 Total Bilirubin 24.1 H Direct Bilirubin 21.7 H AST 204 H ALT 130 H Alkaline Phosphatase 1003 H Total Protein 6.7 Albumin 3.3 L Globulin 3.4 Albumin/Globulin Ratio 1.0 Alpha Fetoprotein CA 19-9 Antigen Hepatitis A IgM Ab Negative Hep Bs Antigen Negative Hep B Core IgM Ab Negative Hepatitis C Antibody Negative 02/12/17 02/12/17 06:50 06:58 WBC 3.2 L RBC 3.15 L Hgb 8.6 L Hct 26.2 L MCV 82.9 MCH 27.4 MCHC 33.0 RDW 18.3 H Plt Count 236 MPV 8.7 Neut % (Auto) 12.1 L Lymph % (Auto) 68.7 H [place] % (Auto) 17.6 H Eos % (Auto) 1.6 Baso % (Auto) 0.0 Neut # 0.4 L Lymph # 2.2 [place] # 0.6 Eos # 0.1 Baso # 0.0 PT INR Sodium Potassium Chloride Carbon Dioxide Anion Gap BUN Creatinine Est GFR ( Amer) Est GFR (Non-Af Amer) POC Glucose (mg/dL) 132 H Random Glucose Calcium Total Bilirubin Direct Bilirubin AST ALT Alkaline Phosphatase Total Protein Albumin Globulin Albumin/Globulin Ratio Alpha Fetoprotein CA 19-9 Antigen Hepatitis A IgM Ab Hep Bs Antigen Hep B Core IgM Ab Hepatitis C Antibody Assessment & Plan (1) Acute kidney failure Assessment and Plan: Patient appeared to be admitted to his advance jaundice total bilirubin about 24 and abnormal liver enzyme function very high including the rising alkaline phosphatase. With the pancreatic head movements as noted on the radiology, presented also with abnormal rising creatinine with low specific gravity of the urine probably consistent with the acute kidney injury most likely although serum creatinine improving somewhat came down today. Patient major problem at the present is a pancreatic mass and the obstructive jaundice which the anemia evaluated and we will monitor the kidney function Status: Acute (2) Elevated transaminase level Status: Acute (3) Jaundice Status: Acute (4) Obstructive jaundice Status: Acute (5) Pancreatic mass Status: Acute
--- NOTE | 2017-02-12 12:13 | CP.PCM.PN ---
Subjective - Date & Time of Evaluation Date of Evaluation: 02/12/17 Time of Evaluation: 11:30 - Subjective Subjective: No feve no N/Vr complains of sl headache mild abd discomfort generalized aches and pain no CP no SOB constipation x 4 days Objective - Vital Signs/Intake and Output Vital Signs (last 24 hours): Temp Pulse Resp BP Pulse Ox 98.7 F 79 20 177/65 H 97 02/12/17 08:46 02/12/17 09:30 02/12/17 08:46 02/12/17 09:30 02/12/17 08:46 Intake and Output: 02/12/17 02/12/17 06:59 18:59 Intake Total 1200 Balance 1200 - Medications Medications: Current Medications Amlodipine Besylate (Norvasc) 10 mg PO DAILY [facility] Last Admin: 02/12/17 09:30 Dose: 10 mg Atenolol (Tenormin) 25 mg PO DAILY [facility] Heparin Sodium (Porcine) (Heparin) 5,000 units SC Q12 ISHAN PRN Reason: Protocol Last Admin: 02/12/17 09:29 Dose: 5,000 units Insulin Human Lispro (Humalog) 0 units SC ACHS ISHAN PRN Reason: Protocol Last Admin: 02/12/17 08:30 Dose: Not Given Morphine Sulfate (Morphine) 2 mg IVP Q4 PRN PRN Reason: Pain, severe (8-10) Ondansetron HCl (Zofran Inj) 4 mg IVP Q6 PRN PRN Reason: Nausea/Vomiting - Labs Labs: 02/12/17 06:50 02/12/17 06:50 PT 16.7 Seconds (9.8-13.1) H 02/12/17 06:50 INR 1.5 (0.9-1.2) H 02/12/17 06:50 APTT 38.4 Seconds (25.6-37.1) H 02/10/17 18:50 - Constitutional Appears: No Acute Distress, Chronically Ill, Other (jaundiced) - Head Exam Head Exam: NORMAL INSPECTION, NORMOCEPHALIC - Eye Exam Eye Exam: Scleral icterus Pupil Exam: NORMAL ACCOMODATION - ENT Exam ENT Exam: Mucous Membranes Dry, Normal External Ear Exam - Neck Exam Neck Exam: Full ROM. absent: Meningismus - Respiratory Exam Respiratory Exam: Rhonchi, NORMAL BREATHING PATTERN. absent: Respiratory Distress - Cardiovascular Exam Cardiovascular Exam: REGULAR RHYTHM, +S1, +S2 - GI/Abdominal Exam GI & Abdominal Exam: Soft, Tenderness, Normal Bowel Sounds - Extremities Exam Extremities Exam: Normal Capillary Refill, Pedal Edema. absent: Calf Tenderness - Back Exam Back Exam: absent: CVA tenderness (L), CVA tenderness (R), vertebral tenderness - Neurological Exam Neurological Exam: Alert, Awake, CN II-XII Intact Additional comments: oriented to person and place - Psychiatric Exam Psychiatric exam: Flat Affect - Skin Skin Exam: Dry, Warm Additional comments: jaundiced Assessment and Plan (1) Pancreatic mass Status: Acute (2) Obstructive jaundice Status: Acute (3) Abnormal LFTs (liver function tests) Status: Acute (4) Acute kidney failure Status: Acute (5) Hypertension Status: Chronic (6) Type 2 diabetes mellitus Status: Chronic (7) Anemia, chronic disease Status: Chronic (8) DVT prophylaxis Status: Acute - Assessment and Plan (Free Text) Assessment: 86 y/o lady with hx of HTN, DM, CKD, came in bec of abd discomfort and jaundice. Pt found to have Pancreatic mass. GI consulted - plan for EUS with biopsy /ERCP. (1) Pancreatic mass Status: Acute very suspicious for malignancy elevated CA 19.9 MRCP:Approximately 4.6 x 4 centimeter mass lesion at the pancreatic head compressing on and obstructing the distal common bile duct. Mildly-to- moderately dilated proximal CBD and [id number] intrahepatic biliary ductal dilatation due to obstruction of the distal CBD by pancreatic head mass. GI consulted Plan for EUS/ERCP in am (2) Obstructive jaundice sec to compression of CBD by pancreatic mass Status: Acute (3) Abnormal LFTs (liver function tests) Status: Acute (4) Acute kidney failure Status: Acute (5) Hypertension uncontrolled Status: Chronic started Norvasc and Atenolol ECHO: EF=45%, mod Pulm HTN low to mod cardiac risk for low risk procedure (6) Type 2 diabetes mellitus Status: Chronic accucheck with coverage hold any hypoglycemics for now as pt NPO (7) Anemia, chronic disease Status: Chronic hgb=8.6 (8) DVT prophylaxis Status: Acute d/c Heparin - pt sched for procedure in am
--- NOTE | 2017-02-12 12:27 | CP.PCM.PN ---
Subjective - Date & Time of Evaluation Date of Evaluation: 02/12/17 Time of Evaluation: 12:00 - Subjective Subjective: Patient seen at bedside with family member. More alert today. Jaundiced. Decreased appetite and denies nausea, vomiting. Afebrile Objective - Vital Signs/Intake and Output Vital Signs (last 24 hours): Temp Pulse Resp BP Pulse Ox 98.7 F 79 20 177/65 H 97 02/12/17 08:46 02/12/17 09:30 02/12/17 08:46 02/12/17 09:30 02/12/17 08:46 Intake and Output: 02/12/17 02/12/17 06:59 18:59 Intake Total 1200 Balance 1200 - Medications Medications: Current Medications Amlodipine Besylate (Norvasc) 10 mg PO DAILY [facility] Last Admin: 02/12/17 09:30 Dose: 10 mg Atenolol (Tenormin) 25 mg PO DAILY [facility] Heparin Sodium (Porcine) (Heparin) 5,000 units SC Q12 ISHAN PRN Reason: Protocol Last Admin: 02/12/17 12:10 Dose: Not Given Insulin Human Lispro (Humalog) 0 units SC ACHS ISHAN PRN Reason: Protocol Last Admin: 02/12/17 08:30 Dose: Not Given Morphine Sulfate (Morphine) 2 mg IVP Q4 PRN PRN Reason: Pain, severe (8-10) Ondansetron HCl (Zofran Inj) 4 mg IVP Q6 PRN PRN Reason: Nausea/Vomiting Tramadol HCl (Ultram) 50 mg PO Q4 PRN PRN Reason: Pain, moderate (4-7) - Labs Labs: 02/12/17 06:50 02/12/17 06:50 PT 16.7 Seconds (9.8-13.1) H 02/12/17 06:50 INR 1.5 (0.9-1.2) H 02/12/17 06:50 APTT 38.4 Seconds (25.6-37.1) H 02/10/17 18:50 - Constitutional Appears: Well, Non-toxic, No Acute Distress - Head Exam Additional comments: Jaundice + - Eye Exam Eye Exam: Scleral icterus - ENT Exam ENT Exam: Mucous Membranes Moist, Normal Exam - Neck Exam Neck Exam: Full ROM, Normal Inspection - Respiratory Exam Respiratory Exam: Clear to Ausculation Bilateral, NORMAL BREATHING PATTERN - Cardiovascular Exam Cardiovascular Exam: REGULAR RHYTHM, RRR, +S1, +S2 - GI/Abdominal Exam GI & Abdominal Exam: Soft, Normal Bowel Sounds Additional comments: No rigidity, guarding or hernia - Extremities Exam Extremities Exam: Full ROM, Normal Inspection - Back Exam Back Exam: NORMAL INSPECTION - Neurological Exam Neurological Exam: Alert, Awake - Psychiatric Exam Psychiatric exam: Normal Affect, Normal Mood - Skin Skin Exam: Dry, Intact Assessment and Plan - Assessment and Plan (Free Text) Assessment: Patient is an 86yo female with PMHx significant for DM, HTN and OA and endometrial CA who presented to the ED with her for generalized weakness and new onset jaundice Plan: - MRCP reviewed- apparent pancreatic head lesion with mild to moderate proximal CBD and PD dilatation -Clear liquid diet as tolerated -Check Autoimmune w/u: BINU, AMA, SMA, LKM-Ab - Hepatitis serologies negative -Plan for EUS with FNB/ERCP on Saturday at [place] - Transport to be called at noon - Please send PT, INR in am in setting of pending biopsy - Ct head unremarkable - Will follow after biopsy
[2017-02-12 12:29] LABS: ANISOCYTOSIS SLIGHT; BASOPHIL 1 % (0-2); EOSINOPHIL 7 % (0-7); LYMPHOCYTE 37 % (20-50); MONOCYTE 21 % (0-10); NEUTROPHIL 34 % (42-75); PLATELET ESTIMATE NORMAL (NORMAL); TOTAL CELLS COUNTED 100
[2017-02-12 12:30] LABS: PLATELET CLUMPS PRESENT; TARGET CELLS SLIGHT
--- NOTE | 2017-02-12 15:04 | CARD ---
APPROVED REPORT EXAM: Two-dimensional and M-mode echocardiogram with Doppler and color Doppler. Other Information Quality : GoodRhythm : NSR INDICATION Pre-Op LV Function:SystolicDiastolic 2D DIMENSIONS IVSd1.21 (0.7-1.1cm)LVDd5.00 (3.9-5.9cm) LVOT Diameter1.90 (1.8-2.4cm)PWd1.16 (0.7-1.1cm) IVSs1.62 (0.8-1.2cm)LVDs4.10 (2.5-4.0cm) FS (%) 17.9 %PWs1.41 (0.8-1.2cm) M-Mode DIMENSIONS Left Atrium (MM)5.21 (2.5-4.0cm)IVSd1.12 (0.7-1.1cm) Aortic Root2.91 (2.2-3.7cm)LVDd5.76 (4.0-5.6cm) Aortic Cusp Exc.1.50 (1.5-2.0cm)PWd1.12 (0.7-1.1cm) IVSs1.65 cmFS (%) 30 % LVDs4.03 (2.0-3.8cm)PWs1.06 cm Aortic Valve AoV Peak Auikgfya784.3cm/sAoV VTI59.9cmAO Peak GR.32mmHg LVOT Peak Eeeyamut68.5cm/sLVOT VTI23.57cmAO Mean GR.19mmHg ODILON (VMAX)0.92hy4NME (VTI)0.18ij4VY P 1/2 Pvzt040dv Mitral Valve MV E Pnsyniom169.5cm/sMV DECEL [id number] A Byghuscw034.0cm/s MV DGZ98vxW/A ratio0.9MVA (PHT)4.82cm2 TDI Lateral E' Peak V4.32cm/sMedial E' Peak V5.79cm/sE/Lateral E'27.7 E/Medial E'20.6 Pulmonary Valve PV Peak Pooncofh432.7cm/s Tricuspid Valve TR Peak Idrcpkgx956zs/sRAP DVRCYRWH19rnYxRX Peak Gr.33mmHg UVAB68hfZk LEFT VENTRICLE The left ventricle is normal size. There is mild concentric left ventricular hypertrophy. Left ventricle systolic function is borderline. The Ejection Fraction is 45-50%. Adequate LV contractility. Transmitral Doppler flow pattern is Grade I-abnormal relaxation pattern. RIGHT VENTRICLE The right ventricle is normal size. There is normal right ventricular wall thickness. The right ventricular systolic function is normal. ATRIA The left atrium is mildly dilated. The right atrium size is normal. AORTIC VALVE The aortic valve is moderately sclerotic. There is mild aortic regurgitation. There is mild valvular aortic stenosis. maximum pressure gradient of 29 mmHg and mean pressure gradient of 17 mmHg. MITRAL VALVE Mitral annular calcification is mild to moderate. There is no evidence of mitral valve prolapse. There is no mitral valve stenosis. Mitral regurgitation is moderate to severe. TRICUSPID VALVE The tricuspid valve is normal in structure. There is mild to moderate tricuspid regurgitation. Right ventricular systolic pressure is estimated at 45 mmHg. There is moderate pulmonary hypertension. PULMONIC VALVE The pulmonary valve is normal in structure and function. There is no pulmonic valvular regurgitation. GREAT VESSELS The aortic root is normal in size. The IVC was not visualized. PERICARDIAL EFFUSION The pericardium appears normal. <Conclusion> The left ventricle is normal size. There is mild concentric left ventricular hypertrophy. Adequate LV contractility. Left ventricle systolic function is borderline. The Ejection Fraction is 45-50%. Transmitral Doppler flow pattern is Grade I-abnormal relaxation pattern. The left atrium is mildly dilated. The aortic valve is moderately sclerotic. There is mild valvular aortic stenosis. Mitral regurgitation is moderate to severe. There is mild to moderate tricuspid regurgitation. There is moderate pulmonary hypertension.
[2017-02-12 19:07] LABS: MEAN CORPUSCULAR HEMOGLOBIN 26.6 pg (27.0-31.0); MEAN CORPUSCULAR HGB CONC 31.3 g/dL (33.0-37.0); RBC 2.64 Mil/uL (3.80-5.20); RED CELL DISTRIBUTION WIDTH 18.4 % (11.5-14.5); WHITE BLOOD COUNT 3.8 K/uL (4.8-10.8)
[2017-02-12 19:29] LABS: ALB/GLOB RATIO 0.9 (1.0-2.1); ALBUMIN 2.4 g/dL (3.5-5.0); CALCIUM 6.6 mg/dL (8.4-10.2)
[2017-02-12 19:58] LABS: INR 1.9 (0.9-1.2); PROTHROMBIN TIME 21.5 Seconds (9.8-13.1)
[2017-02-13] MEDS: Insulin Lispro (humaLOG) 100 Units/ml Inj SC SCH ×4 (06:34→21:55)
[2017-02-13 07:31] LABS: ALB/GLOB RATIO 0.9 (1.0-2.1); ALBUMIN 3.4 g/dL (3.5-5.0); CALCIUM 9.2 mg/dL (8.4-10.2)
[2017-02-13 07:36] LABS: INR 1.6 (0.9-1.2); PROTHROMBIN TIME 18.5 Seconds (9.8-13.1)
[2017-02-13] MEDS ORDERED: Phytonadione 10 mg/ml Inj (Adult) SC ONE (08:20)
[2017-02-13 08:33] LABS: EOS # 0.1 K/uL (0.0-0.7); EOS % 0.9 % (0.0-4.0); HEMOGLOBIN 10.6 g/dL (12.0-16.0); MEAN CORPUSCULAR HEMOGLOBIN 27.5 pg (27.0-31.0); MEAN CORPUSCULAR HGB CONC 32.4 g/dL (33.0-37.0); MEAN PLATELET VOLUME 8.9 fl (7.2-11.7); MONO # 1.5 K/uL (0.0-0.8); MONO % 23.1 % (0.0-10.0); NEUT # 2.8 K/uL (1.8-7.0); RBC 3.86 Mil/uL (3.80-5.20); RED CELL DISTRIBUTION WIDTH 16.7 % (11.5-14.5); WHITE BLOOD COUNT 6.4 K/uL (4.8-10.8)
--- NOTE | 2017-02-13 10:20 | CP.PCM.CON ---
History of Present Illness - History of Present Illness History of Present Illness: Patient is an 86yo female with PMHx significant for uterine cancer s/p hysterecotmy and XRT, prior lumbar compression fx, DM, HTN and OA who presented to the ED with her for generalized weakness and new onset jaundice. Patient is only able to provide a very limited history and is rather lethargic at this time, though arousable. Her daughter is at bedside and unsure about her mother's medical history and thus history is limited to the EMR and what I can obtain at bedside. The patient states that for the past 4 days she has had generalized weakness and malaise. She notes that 3 days [employer] her skin began to change color, becoming more jaundiced each day until her brought her to the ED for further evaluation. She denies any samara abdominal discomfort, nausea, vomiting, diarrhea or recent illness. She denies recent travel. On arrival, an U/S of the abdomen revealed a 4.2x4.7x3.6 lesion in the pancreatic head. An MRCP is pending at this time. Pancreatic Mass, Jaundice Hypertensive Urgency Chronic Anemia prob sec to Malignancy IMELDA vs CKD stage III EKG: normal Echo: [facility] EF: 45-50% Mild MR/TR PH Past Patient History - Infectious Disease Hx of Infectious Diseases: None - Tetanus Immunizations Tetanus Immunization: Unknown - Past Medical History & Family History Past Medical History?: Yes - Past Social History Alcohol: None Drugs: Denies - CARDIAC Hx Atrial Fibrillation: No Hx Cardia Arrhythmia: No Hx Congestive Heart Failure: No Hx Hypercholesterolemia: No Hx Hypertension: Yes Hx Mitral Valve Prolapse: No Hx Pacemaker: No Hx Peripheral Edema: No - PULMONARY Hx Asthma: No Hx Bronchitis: No Hx Chronic Obstructive Pulmonary Disease (COPD): No Hx Emphysema: No Hx Pneumonia: No Hx Pulmonary Embolism: No Hx Sleep Apnea: No - NEUROLOGICAL Hx Alzheimer's Disease: No Hx Dementia: No Hx Migraine: No Hx Multiple Sclerosis: No Hx Parkinson's Disease: No Hx Seizures: No Hx Transient Ischemic Attacks (TIA): No - HEENT Hx HEENT Problems: Yes Hx Blind: No Hx Cataracts: Yes Hx Deafness: No Hx Difficulty Chewing: No Hx Epistaxis: No Hx Glaucoma: No Hx Macular Degeneration: No - RENAL Hx Chronic Kidney Disease: No Hx Kidney Stones: No - ENDOCRINE/METABOLIC Hx Hyperthyroidism: No Hx Hypothyroidism: No - HEMATOLOGICAL/ONCOLOGICAL Hx Anemia: No Hx Human Immunodeficiency Virus (HIV): No Hx Sickle Cell Disease: No - INTEGUMENTARY Hx Dermatological Problems: No Hx Basil Cell: No Hx Dubon: No Hx Cellulitis: No Hx Eczema: No Hx Melanoma: No Hx Psoriasis: No Hx Squamous Cell: No - MUSCULOSKELETAL/RHEUMATOLOGICAL Hx Arthritis: No Hx Fractures: No Hx Osteoporosis: No Hx Rheumatoid Arthritis: No - GASTROINTESTINAL Hx Crohn's Disease: No Hx Diverticulitis: No Hx Gall Bladder Disease: No Hx Gastritis: No Hx Pancreatitis: No - GENITOURINARY/GYNECOLOGICAL Hx Sexually Transmitted Disorders: No - PSYCHIATRIC Hx Anxiety: No Hx Bipolar Disorder: No Hx Depression: No Hx Paranoia: No Hx Post Traumatic Stress Disorder: No Hx Schizophrenia: No - SURGICAL HISTORY Hx Appendectomy: Yes Hx Carotid Endarterectomy: No Hx Cholecystectomy: No Hx Coronary Artery Bypass Graft: No Hx Coronary Stent: No Hx Tonsillectomy: No - ANESTHESIA Hx Anesthesia: Yes Hx Anesthesia Reactions: No Hx Malignant Hyperthermia: No Meds Allergies/Adverse Reactions: Allergies Allergy/AdvReac Type Severity Reaction Status Date / Time No Known Allergies Allergy Verified 05/08/16 08:15 - Medications Medications: Current Medications Amlodipine Besylate (Norvasc) 10 mg PO DAILY [facility] Last Admin: 02/13/17 09:04 Dose: 10 mg Atenolol (Tenormin) 50 mg PO DAILY [facility] Last Admin: 02/13/17 09:05 Dose: 50 mg Docusate Sodium (Colace) 100 mg PO BID [facility] Last Admin: 02/13/17 08:11 Dose: Not Given Hydralazine HCl (Apresoline) 10 mg IV Q6 PRN PRN Reason: Systolic Blood Pressure Insulin Human Lispro (Humalog) 0 units SC [facility] PRN Reason: Protocol Last Admin: 02/13/17 06:34 Dose: Not Given Morphine Sulfate (Morphine) 2 mg IVP Q4 PRN PRN Reason: Pain, severe (8-10) Last Admin: 02/12/17 14:39 Dose: 2 mg Ondansetron HCl (Zofran Inj) 4 mg IVP Q6 PRN PRN Reason: Nausea/Vomiting Tramadol HCl (Ultram) 50 mg PO Q4 PRN PRN Reason: Pain, moderate (4-7) Last Admin: 02/12/17 12:23 Dose: 50 mg Results - Vital Signs Recent Vital Signs: Last Vital Signs Temp 97.7 F 02/13/17 07:50 Pulse 74 02/13/17 09:05 Resp 20 02/13/17 07:50 BP 182/65 H 02/13/17 09:05 Pulse Ox 99 02/13/17 07:50 - Labs Result Diagrams: 02/13/17 09:30 02/13/17 05:35 Labs: Laboratory Results - last 24 hr 02/11/17 02/11/17 02/12/17 18:41 18:41 06:50 WBC RBC Hgb Hct MCV MCH MCHC RDW Plt Count MPV Neut % (Auto) Lymph % (Auto) [place] % (Auto) Eos % (Auto) Baso % (Auto) Neut # Lymph # [place] # Eos # Baso # Neutrophils % (Manual) 34 L Lymphocytes % (Manual) 37 Monocytes % (Manual) 21 H Eosinophils % (Manual) 7 Basophils % (Manual) 1 Platelet Estimate Normal Plt Clumps, EDTA Present Anisocytosis (manual) Slight Target Cells Slight PT INR Sodium Potassium Chloride Carbon Dioxide Anion Gap BUN Creatinine Est GFR ( Amer) Est GFR (Non-Af Amer) POC Glucose (mg/dL) Random Glucose Calcium Total Bilirubin AST ALT Alkaline Phosphatase Ammonia Total Protein Albumin Globulin Albumin/Globulin Ratio IgG 811.6 BINU Screen Negative Anti-Mitochondrial Ab Negative Blood Type Antibody Screen Crossmatch BBK History Checked 02/12/17 02/12/17 02/12/17 11:32 15:39 18:15 WBC RBC Hgb Hct MCV MCH MCHC RDW Plt Count MPV Neut % (Auto) Lymph % (Auto) [place] % (Auto) Eos % (Auto) Baso % (Auto) Neut # Lymph # [place] # Eos # Baso # Neutrophils % (Manual) Lymphocytes % (Manual) Monocytes % (Manual) Eosinophils % (Manual) Basophils % (Manual) Platelet Estimate Plt Clumps, EDTA Anisocytosis (manual) Target Cells PT INR Sodium Potassium Chloride Carbon Dioxide Anion Gap BUN Creatinine Est GFR ( Amer) Est GFR (Non-Af Amer) POC Glucose (mg/dL) 153 H 261 H Random Glucose Calcium Total Bilirubin AST ALT Alkaline Phosphatase Ammonia Total Protein Albumin Globulin Albumin/Globulin Ratio IgG BINU Screen Anti-Mitochondrial Ab Blood Type O POSITIVE Antibody Screen Negative Crossmatch See Detail BBK History Checked Patient has bt 02/12/17 02/12/17 02/12/17 19:04 19:04 19:04 WBC 3.8 L RBC 2.64 L Hgb 7.0 L Hct 22.5 L MCV 85.0 D MCH 26.6 L MCHC 31.3 L RDW 18.4 H Plt Count 193 MPV Neut % (Auto) Lymph % (Auto) [place] % (Auto) Eos % (Auto) Baso % (Auto) Neut # Lymph # [place] # Eos # Baso # Neutrophils % (Manual) Lymphocytes % (Manual) Monocytes % (Manual) Eosinophils % (Manual) Basophils % (Manual) Platelet Estimate Plt Clumps, EDTA Anisocytosis (manual) Target Cells PT 21.5 H INR 1.9 H Sodium Potassium Chloride Carbon Dioxide Anion Gap BUN Creatinine Est GFR ( Amer) Est GFR (Non-Af Amer) POC Glucose (mg/dL) Random Glucose Calcium Total Bilirubin AST ALT Alkaline Phosphatase Ammonia < 9 L Total Protein Albumin Globulin Albumin/Globulin Ratio IgG BINU Screen Anti-Mitochondrial Ab Blood Type Antibody Screen Crossmatch BBK History Checked 02/12/17 02/12/17 02/13/17 19:04 21:01 05:16 WBC RBC Hgb Hct MCV MCH MCHC RDW Plt Count MPV Neut % (Auto) Lymph % (Auto) [place] % (Auto) Eos % (Auto) Baso % (Auto) Neut # Lymph # [place] # Eos # Baso # Neutrophils % (Manual) Lymphocytes % (Manual) Monocytes % (Manual) Eosinophils % (Manual) Basophils % (Manual) Platelet Estimate Plt Clumps, EDTA Anisocytosis (manual) Target Cells PT INR Sodium 141 Potassium 3.3 L Chloride 117 H Carbon Dioxide 14 L Anion Gap 13 BUN 20 H Creatinine 1.1 Est GFR ( Amer) 57 Est GFR (Non-Af Amer) 47 POC Glucose (mg/dL) 243 H 226 H Random Glucose 169 H Calcium 6.6 L Total Bilirubin 21.4 H AST 149 H D ALT 109 H Alkaline Phosphatase 736 H D Ammonia Total Protein 5.3 L Albumin 2.4 L D Globulin 2.8 Albumin/Globulin Ratio 0.9 L IgG BIUN Screen Anti-Mitochondrial Ab Blood Type Antibody Screen Crossmatch BBK History Checked 02/13/17 02/13/17 02/13/17 05:35 05:35 05:35 WBC 6.4 D RBC 3.86 Hgb 10.6 L D Hct 32.8 L MCV 85.0 MCH 27.5 MCHC 32.4 L RDW 16.7 H Plt Count 267 MPV 8.9 Neut % (Auto) 44.0 L Lymph % (Auto) 32.0 [place] % (Auto) 23.1 H Eos % (Auto) 0.9 Baso % (Auto) 0.0 Neut # 2.8 Lymph # 2.0 [place] # 1.5 H Eos # 0.1 Baso # 0.0 Neutrophils % (Manual) Lymphocytes % (Manual) Monocytes % (Manual) Eosinophils % (Manual) Basophils % (Manual) Platelet Estimate Plt Clumps, EDTA Anisocytosis (manual) Target Cells PT 18.5 H INR 1.6 H Sodium 141 Potassium 4.3 Chloride 108 H Carbon Dioxide 20 L Anion Gap 17 BUN 28 H Creatinine 1.7 H Est GFR ( Amer) 35 Est GFR (Non-Af Amer) 29 POC Glucose (mg/dL) Random Glucose 214 H Calcium 9.2 Total Bilirubin 29.5 H AST 214 H D ALT 122 H Alkaline Phosphatase 1132 H Ammonia Total Protein 7.1 Albumin 3.4 L D Globulin 3.7 Albumin/Globulin Ratio 0.9 L IgG BINU Screen Anti-Mitochondrial Ab Blood Type Antibody Screen Crossmatch BBK History Checked 02/13/17 05:35 WBC RBC Hgb Hct MCV MCH MCHC RDW Plt Count MPV Neut % (Auto) Lymph % (Auto) [place] % (Auto) Eos % (Auto) Baso % (Auto) Neut # Lymph # [place] # Eos # Baso # Neutrophils % (Manual) Lymphocytes % (Manual) Monocytes % (Manual) Eosinophils % (Manual) Basophils % (Manual) Platelet Estimate Plt Clumps, EDTA Anisocytosis (manual) Target Cells PT INR Sodium Potassium Chloride Carbon Dioxide Anion Gap BUN Creatinine Est GFR ( Amer) Est GFR (Non-Af Amer) POC Glucose (mg/dL) Random Glucose Calcium Total Bilirubin AST ALT Alkaline Phosphatase Ammonia < 9 L Total Protein Albumin Globulin Albumin/Globulin Ratio IgG BINU Screen Anti-Mitochondrial Ab Blood Type Antibody Screen Crossmatch BBK History Checked Assessment & Plan (1) Pancreatic mass Assessment and Plan: Crad[place] billingsley the pt is stable she is cleared for ERCP Status: Acute (2) Abnormal LFTs (liver function tests) Status: Acute (3) Acute kidney failure Status: Acute (4) Hyperbilirubinemia Status: Acute (5) Obstructive jaundice Status: Acute (6) Essential (primary) hypertension Status: Acute
[2017-02-13 10:26] LABS: HEMOGLOBIN 10.5 g/dL (12.0-16.0); MEAN CORPUSCULAR HEMOGLOBIN 27.7 pg (27.0-31.0); RBC 3.8 Mil/uL (3.80-5.20); RED CELL DISTRIBUTION WIDTH 17.1 % (11.5-14.5); WHITE BLOOD COUNT 6.1 K/uL (4.8-10.8)
--- NOTE | 2017-02-13 10:32 | CARD ---
APPROVED REPORT EKG Measurement Heart [id number] DE [id number] <Conclusion> Normal sinus rhythm Left axis deviation Nonspecific T wave abnormality Prolonged QT Abnormal ECG
--- NOTE | 2017-02-13 11:19 | CP.PCM.PN ---
Subjective - Date & Time of Evaluation Date of Evaluation: 02/13/17 Time of Evaluation: 11:17 - Subjective Subjective: Patient and bed no significant changes appeared to be very jaundice No shortness of breath no difficulty breathing Physical exam Not in acute distress Chest no significant rales Heart no rubs Abdomen tender Stemetil he no edema And the skin very jaundice Impression and plan Pancreatic head mass waiting for biopsy with advanced obstructive jaundice Acute kidney injury related perhaps to the liver failure As per plan for biopsy Objective - Vital Signs/Intake and Output Vital Signs (last 24 hours): Temp Pulse Resp BP Pulse Ox 97.7 F 74 20 182/65 H 99 02/13/17 07:50 02/13/17 09:05 02/13/17 07:50 02/13/17 09:05 02/13/17 07:50 - Medications Medications: Current Medications Amlodipine Besylate (Norvasc) 10 mg PO DAILY [facility] Last Admin: 02/13/17 09:04 Dose: 10 mg Atenolol (Tenormin) 50 mg PO DAILY [facility] Last Admin: 02/13/17 09:05 Dose: 50 mg Docusate Sodium (Colace) 100 mg PO BID [facility] Last Admin: 02/13/17 08:11 Dose: Not Given Hydralazine HCl (Apresoline) 10 mg IV Q6 PRN PRN Reason: Systolic Blood Pressure Insulin Human Lispro (Humalog) [address] [facility] PRN Reason: Protocol Last Admin: 02/13/17 06:34 Dose: Not Given Morphine Sulfate (Morphine) 2 mg IVP Q4 PRN PRN Reason: Pain, severe (8-10) Last Admin: 02/12/17 14:39 Dose: 2 mg Ondansetron HCl (Zofran Inj) 4 mg IVP Q6 PRN PRN Reason: Nausea/Vomiting Tramadol HCl (Ultram) 50 mg PO Q4 PRN PRN Reason: Pain, moderate (4-7) Last Admin: 02/12/17 12:23 Dose: 50 mg - Labs Labs: 02/13/17 09:30 02/13/17 05:35 PT 18.5 Seconds (9.8-13.1) H 02/13/17 05:35 INR 1.6 (0.9-1.2) H 02/13/17 05:35 APTT 38.4 Seconds (25.6-37.1) H 02/10/17 18:50 Assessment and Plan (1) Acute kidney failure Status: Acute (2) Elevated transaminase level Status: Acute (3) Jaundice Status: Acute (4) Obstructive jaundice Status: Acute (5) Pancreatic mass Status: Acute
--- NOTE | 2017-02-13 14:21 | CP.PCM.PN ---
Subjective - Date & Time of Evaluation Date of Evaluation: 02/13/17 Time of Evaluation: 09:15 - Subjective Subjective: No fever minimal abd pain however also with some generalized aches had large BM yesterday no N/V + jaundiced no CP no SOB Scheduled for EUS/biopsy/ERCP today Recieved PRBC transfusion last night - awaiting rpt CBC this am Objective - Vital Signs/Intake and Output Vital Signs (last 24 hours): Temp Pulse Resp BP Pulse Ox 98.2 F 69 20 160/74 H 95 02/13/17 11:53 02/13/17 11:53 02/13/17 11:53 02/13/17 11:53 02/13/17 11:53 - Medications Medications: Current Medications Amlodipine Besylate (Norvasc) 10 mg PO DAILY [facility] Last Admin: 02/13/17 09:04 Dose: 10 mg Atenolol (Tenormin) 50 mg PO DAILY [facility] Last Admin: 02/13/17 09:05 Dose: 50 mg Docusate Sodium (Colace) 100 mg PO BID [facility] Last Admin: 02/13/17 08:11 Dose: Not Given Hydralazine HCl (Apresoline) 10 mg IV Q6 PRN PRN Reason: Systolic Blood Pressure Insulin Human Lispro (Humalog) 0 units SC ACHS [facility] PRN Reason: Protocol Last Admin: 02/13/17 14:03 Dose: Not Given Morphine Sulfate (Morphine) 2 mg IVP Q4 PRN PRN Reason: Pain, severe (8-10) Last Admin: 02/12/17 14:39 Dose: 2 mg Ondansetron HCl (Zofran Inj) 4 mg IVP Q6 PRN PRN Reason: Nausea/Vomiting Tramadol HCl (Ultram) 50 mg PO Q4 PRN PRN Reason: Pain, moderate (4-7) Last Admin: 02/12/17 12:23 Dose: 50 mg - Labs Labs: 02/13/17 09:30 02/13/17 05:35 PT 18.5 Seconds (9.8-13.1) H 02/13/17 05:35 INR 1.6 (0.9-1.2) H 02/13/17 05:35 APTT 38.4 Seconds (25.6-37.1) H 02/10/17 18:50 - Constitutional Appears: No Acute Distress, Chronically Ill, Other (jaundiced) - Head Exam Head Exam: NORMAL INSPECTION, NORMOCEPHALIC - Eye Exam Eye Exam: Scleral icterus Pupil Exam: NORMAL ACCOMODATION - ENT Exam ENT Exam: Mucous Membranes Dry, Normal External Ear Exam - Neck Exam Neck Exam: Full ROM. absent: Meningismus - Respiratory Exam Respiratory Exam: Rhonchi, NORMAL BREATHING PATTERN. absent: Respiratory Distress - Cardiovascular Exam Cardiovascular Exam: REGULAR RHYTHM, +S1, +S2 - GI/Abdominal Exam GI & Abdominal Exam: Soft, diffuse Tenderness, Normal Bowel Sounds - Extremities Exam Extremities Exam: Normal Capillary Refill, ++ Pedal Edema. absent: Calf Tenderness - Back Exam Back Exam: absent: CVA tenderness (L), CVA tenderness (R), vertebral tenderness - Neurological Exam Neurological Exam: Alert, Awake, CN II-XII Intact Additional comments: oriented to person and place - Psychiatric Exam Psychiatric exam: Flat Affect - Skin Skin Exam: Dry, Warm Additional comments: jaundiced Assessment and Plan (1) Pancreatic mass Status: Acute (2) Obstructive jaundice Status: Acute (3) Abnormal LFTs (liver function tests) Status: Acute (4) Acute kidney failure Status: Acute (5) Hypertension Status: Chronic (6) Type 2 diabetes mellitus Status: Chronic (7) Anemia, chronic disease Status: Chronic (8) DVT prophylaxis Status: Acute - Assessment and Plan (Free Text) Assessment: 86 y/o lady with hx of HTN, DM, CKD, came in bec of abd discomfort and jaundice. Pt found to have Pancreatic mass. GI consulted - plan for EUS with biopsy /ERCP today. (1) Pancreatic mass Status: Acute very suspicious for malignancy elevated CA 19.9 MRCP:Approximately 4.6 x 4 centimeter mass lesion at the pancreatic head compressing on and obstructing the distal common bile duct. Mildly-to- moderately dilated proximal CBD and [id number] intrahepatic biliary ductal dilatation due to obstruction of the distal CBD by pancreatic head mass. GI consulted- Dr Yip Plan for EUS with biopsy /ERCP poss stent today- to be done at [facility] (2) Obstructive jaundice sec to compression of CBD by pancreatic mass Status: Acute (3) Abnormal LFTs (liver function tests) sec to to above Status: Acute (4) Acute kidney failure on CKD stage III likely due to HTN/DM Status: Acute Nephrology consulted IVF hydration (5) Hypertension uncontrolled/Hypertensive Urgency Status: Chronic Hydralazine IV given started Norvasc and Atenolol ECHO: EF=45%, mod Pulm HTN low to mod cardiac risk for low risk procedure cardio consulted for pre op optimization (6) Type 2 diabetes mellitus Status: Chronic accucheck with coverage hold any hypoglycemics for now as pt NPO (7) Anemia, chronic disease Status: Chronic likely worsened by hydration transfused 2 units PRBC- hgb now 10 pt with have Endoscopy today Protonix 8. 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
[2017-02-13 19:09] VITALS: RESP 18
[2017-02-14 06:35] LABS: BASO # 0.2 K/uL (0.0-0.2); BASO % 2.8 % (0.0-2.0); EOS # 0.3 K/uL (0.0-0.7); EOS % 3.5 % (0.0-4.0); HEMOGLOBIN 10.3 g/dL (12.0-16.0); LYMPH # 2.4 K/uL (1.0-4.3); LYMPH % 29.5 % (20.0-40.0); MEAN CELL VOLUME 86.3 fl (81.0-99.0); MEAN CORPUSCULAR HEMOGLOBIN 27.9 pg (27.0-31.0); MEAN CORPUSCULAR HGB CONC 32.3 g/dL (33.0-37.0); MEAN PLATELET VOLUME 8.9 fl (7.2-11.7); MONO # 1.3 K/uL (0.0-0.8); MONO % 15.8 % (0.0-10.0); NEUT % 48.4 % (50.0-75.0); NRBC % 0.1 % (0.0-0.0); RBC 3.68 Mil/uL (3.80-5.20); RED CELL DISTRIBUTION WIDTH 16.9 % (11.5-14.5); WHITE BLOOD COUNT 8.2 K/uL (4.8-10.8)
[2017-02-14 06:57] LABS: INR 1.1 (0.9-1.2); PROTHROMBIN TIME 12.2 Seconds (9.8-13.1)
[2017-02-14 07:09] LABS: ALB/GLOB RATIO 0.9 (1.0-2.1); ALBUMIN 3.1 g/dL (3.5-5.0); ALT/SGPT 94 U/L (9-52); AST/SGOT 82 U/L (14-36); BLOOD UREA NITROGEN 37 mg/dl (7-17); CALCIUM 8.7 mg/dL (8.4-10.2); GFR AFRICAN-AMERICAN 32; GFR NON-AFRICAN AMERICAN 27
[2017-02-14 07:11] LABS: LIPASE < 10 U/L (23-300)
[2017-02-14] MEDS: Morphine 4 MG/ML VIAL IVP PRN (08:39)
[2017-02-14] MEDS: Insulin Lispro (humaLOG) 100 Units/ml Inj SC SCH ×4 (08:45→21:50)
--- NOTE | 2017-02-14 10:21 | CP.PCM.PN ---
Subjective - Date & Time of Evaluation Date of Evaluation: 02/14/17 Time of Evaluation: 10:18 - Subjective Subjective: No significant changes clinically Patient and bed Jaundice I am told by the nurse that she went to [facility] ([facility]) and she had biopsy and Biliary stent although no record in the EMR as of now Kidney functions remain stable Total bilirubin coming down The impression and plan Acute kidney injury related to liver disease obstructive jaundice Pancreatic mass Continue to monitor kidney function Objective - Vital Signs/Intake and Output Vital Signs (last 24 hours): Temp Pulse Resp BP Pulse Ox 98.4 F 63 18 155/64 H 94 L 02/14/17 08:27 02/14/17 08:27 02/14/17 08:27 02/14/17 08:27 02/14/17 08:27 - Medications Medications: Current Medications Amlodipine Besylate (Norvasc) 10 mg PO DAILY [facility] Last Admin: 02/13/17 09:04 Dose: 10 mg Atenolol (Tenormin) 50 mg PO DAILY [facility] Last Admin: 02/13/17 09:05 Dose: 50 mg Docusate Sodium (Colace) 100 mg PO BID [facility] Last Admin: 02/13/17 18:46 Dose: Not Given Hydralazine HCl (Apresoline) 10 mg IV Q6 PRN PRN Reason: Systolic Blood Pressure Insulin Human Lispro (Humalog) 0 units SC [facility] PRN Reason: Protocol Last Admin: 02/13/17 21:55 Dose: Not Given Morphine Sulfate (Morphine) 2 mg IVP Q4 PRN PRN Reason: Pain, severe (8-10) Last Admin: 02/14/17 08:39 Dose: 2 mg Ondansetron HCl (Zofran Inj) 4 mg IVP Q6 PRN PRN Reason: Nausea/Vomiting Tramadol HCl (Ultram) 50 mg PO Q4 PRN PRN Reason: Pain, moderate (4-7) Last Admin: 02/12/17 12:23 Dose: 50 mg - Labs Labs: 02/14/17 05:00 02/14/17 05:00 PT 12.2 Seconds (9.8-13.1) D 02/14/17 05:00 INR 1.1 (0.9-1.2) D 02/14/17 05:00 APTT 38.4 Seconds (25.6-37.1) H 02/10/17 18:50 Assessment and Plan (1) Acute kidney failure Status: Acute (2) Elevated transaminase level Status: Acute (3) Jaundice Status: Acute (4) Obstructive jaundice Status: Acute (5) Pancreatic mass Status: Acute
--- NOTE | 2017-02-14 11:08 | CP.PCM.PN ---
Subjective - Date & Time of Evaluation Date of Evaluation: 02/14/17 Time of Evaluation: 11:30 - Subjective Subjective: Patient seen and evaluated bedside. Elderly female ,jaundiced , lying in bed, appearing weak and tired , complains of generalized body aches and pains.Tolerated liquid diet but poor po intake.\ lipase normal Objective - Vital Signs/Intake and Output Vital Signs (last 24 hours): Temp Pulse Resp BP Pulse Ox 98.4 F 63 18 155/64 H 94 L 02/14/17 08:27 02/14/17 08:27 02/14/17 08:27 02/14/17 08:27 02/14/17 08:27 - Medications Medications: Current Medications Amlodipine Besylate (Norvasc) 10 mg PO DAILY [facility] Last Admin: 02/13/17 09:04 Dose: 10 mg Atenolol (Tenormin) 50 mg PO DAILY [facility] Last Admin: 02/13/17 09:05 Dose: 50 mg Docusate Sodium (Colace) 100 mg PO BID [facility] Last Admin: 02/13/17 18:46 Dose: Not Given Hydralazine HCl (Apresoline) 10 mg IV Q6 PRN PRN Reason: Systolic Blood Pressure Insulin Human Lispro (Humalog) 0 units SC [facility] PRN Reason: Protocol Last Admin: 02/13/17 21:55 Dose: Not Given Morphine Sulfate (Morphine) 2 mg IVP Q4 PRN PRN Reason: Pain, severe (8-10) Last Admin: 02/14/17 08:39 Dose: 2 mg Ondansetron HCl (Zofran Inj) 4 mg IVP Q6 PRN PRN Reason: Nausea/Vomiting Tramadol HCl (Ultram) 50 mg PO Q4 PRN PRN Reason: Pain, moderate (4-7) Last Admin: 02/12/17 12:23 Dose: 50 mg - Labs Labs: 02/14/17 05:00 02/14/17 05:00 PT 12.2 Seconds (9.8-13.1) D 02/14/17 05:00 INR 1.1 (0.9-1.2) D 02/14/17 05:00 APTT 38.4 Seconds (25.6-37.1) H 02/10/17 18:50 - Constitutional Appears: Other (jaundices, weak and tired ) - Head Exam Head Exam: ATRAUMATIC, NORMOCEPHALIC - Eye Exam Eye Exam: EOMI, PERRL Pupil Exam: NORMAL ACCOMODATION - ENT Exam ENT Exam: Normal Exam - Neck Exam Neck Exam: Normal Inspection - Respiratory Exam Respiratory Exam: Clear to Ausculation Bilateral, NORMAL BREATHING PATTERN. absent: Rhonchi, Wheezes - Cardiovascular Exam Cardiovascular Exam: REGULAR RHYTHM, +S1, +S2. absent: JVD - GI/Abdominal Exam GI & Abdominal Exam: Soft, Tenderness (with palpation), Normal Bowel Sounds. absent: Distended, Guarding, Rebound - Rectal Exam Rectal Exam: absent: Deferred - Extremities Exam Extremities Exam: Pedal Edema (1 = bilaterally ). absent: Calf Tenderness - Back Exam Back Exam: NORMAL INSPECTION - Neurological Exam Neurological Exam: Alert, Awake, Oriented x3 - Psychiatric Exam Psychiatric exam: Flat Affect - Skin Skin Exam: Dry, Pallor, Warm Assessment and Plan - Assessment and Plan (Free Text) Assessment: 86 y/o lady with hx of HTN, DM, CKD, came in bec of abdominal discomfort and jaundice. Patient found to have Pancreatic mass. GI consulted and patient underwent EUS with biopsy ,ERCP with stent placement. Post procedure patient hemodynamically stable, tolerating liquid diet ,weak Oncology consulted . 1. 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 Mildly-to- moderately dilated proximal CBD and [id number] intrahepatic biliary ductal dilatation due to obstruction of the distal CBD by pancreatic head mass. s/p EUS with biopsy /ERCP and stent placement LFT-s and bilirubin trending down and patient tolerating liquid diet will advance diet to low fat patient has poor prognosis . Results discussed with after patient requested that everything be explained to her .He would like to discuss with their PMD as well and get a recommendation about future treatment plans Oncology consulted and case discussed with Dr. Boland. Patient to follow up biopsy results OUT PATIENT Continue pain management PT eval . They would like to be discharged home with physical therapy 2.Obstructive jaundice sec to compression of CBD by pancreatic mass Acute as above 3. Abnormal LFTs (liver function tests) sec to to above Acute 4.Acute kidney failure on CKD stage III likely due to HTN/DM stable Nephrology consulted IVF hydration hold ACEI 5. Hypertension uncontrolled/Hypertensive Urgency Chronic started Norvasc and Atenolol star Hydralazine 25 mg PO TID ECHO: EF=45%, mod Pulm HTN d/c ACEI cardio consult appreciated 6.Type 2 diabetes mellitus Chronic accucheck with coverage start diabetic diet hold po meds started Levemir 10 units HS 7.Anemia, chronic disease Chronic likely worsened by hydration transfused 2 units PRBC- hgb now 10 continue Protonix 8. 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 DVT prophylaxis no anticoag since patient is coagulopathic
--- NOTE | 2017-02-14 12:10 | CP.PCM.CON ---
History of Present Illness - History of Present Illness History of Present Illness: 86 year old female with a history of HTN, DM, [employer] cancer s/p surgery and adjuvant radiation 5 years ago, admitted with obstructive jaundice secondary to pancreatic head mass s/p EUS with metal stenting. The patient currently reports to diffuse stomach pain. Her reports her skin was becoming more yellow and associated with increasing abdominal pain. She denies fevers and chills. EUS revealed portal vein invasion and [address] Past medical history: HTN, DM, [employer] malignancy Past surgical history: Total hysterectomy Family history: Denies hematologic and oncologic problems Social history: Denies tobacco, alcohol and illicit drug use. Allergies: NKA Review of systems: All remaining review of systems including HEENT, cardiovascular, respiratory, gastrointestinal, genitourinary, musculoskeletal, dermatologic, neurologic, and psychiatric are negative unless mentioned in the HPI. Past Patient History - Infectious Disease Hx of Infectious Diseases: None - Tetanus Immunizations Tetanus Immunization: Unknown - Past Medical History & Family History Past Medical History?: Yes - Past Social History Alcohol: None Drugs: Denies - CARDIAC Hx Atrial Fibrillation: No Hx Cardia Arrhythmia: No Hx Congestive Heart Failure: No Hx Hypercholesterolemia: No Hx Hypertension: Yes Hx Mitral Valve Prolapse: No Hx Pacemaker: No Hx Peripheral Edema: No - PULMONARY Hx Asthma: No Hx Bronchitis: No Hx Chronic Obstructive Pulmonary Disease (COPD): No Hx Emphysema: No Hx Pneumonia: No Hx Pulmonary Embolism: No Hx Sleep Apnea: No - NEUROLOGICAL Hx Alzheimer's Disease: No Hx Dementia: No Hx Migraine: No Hx Multiple Sclerosis: No Hx Parkinson's Disease: No Hx Seizures: No Hx Transient Ischemic Attacks (TIA): No - HEENT Hx HEENT Problems: Yes Hx Blind: No Hx Cataracts: Yes Hx Deafness: No Hx Difficulty Chewing: No Hx Epistaxis: No Hx Glaucoma: No Hx Macular Degeneration: No - RENAL Hx Chronic Kidney Disease: No Hx Kidney Stones: No - ENDOCRINE/METABOLIC Hx Hyperthyroidism: No Hx Hypothyroidism: No - HEMATOLOGICAL/ONCOLOGICAL Hx Anemia: No Hx Human Immunodeficiency Virus (HIV): No Hx Sickle Cell Disease: No - INTEGUMENTARY Hx Dermatological Problems: No Hx Basil Cell: No Hx Dubon: No Hx Cellulitis: No Hx Eczema: No Hx Melanoma: No Hx Psoriasis: No Hx Squamous Cell: No - MUSCULOSKELETAL/RHEUMATOLOGICAL Hx Arthritis: No Hx Fractures: No Hx Osteoporosis: No Hx Rheumatoid Arthritis: No - GASTROINTESTINAL Hx Crohn's Disease: No Hx Diverticulitis: No Hx Gall Bladder Disease: No Hx Gastritis: No Hx Pancreatitis: No - GENITOURINARY/GYNECOLOGICAL Hx Sexually Transmitted Disorders: No - PSYCHIATRIC Hx Anxiety: No Hx Bipolar Disorder: No Hx Depression: No Hx Paranoia: No Hx Post Traumatic Stress Disorder: No Hx Schizophrenia: No - SURGICAL HISTORY Hx Appendectomy: Yes Hx Carotid Endarterectomy: No Hx Cholecystectomy: No Hx Coronary Artery Bypass Graft: No Hx Coronary Stent: No Hx Tonsillectomy: No - ANESTHESIA Hx Anesthesia: Yes Hx Anesthesia Reactions: No Hx Malignant Hyperthermia: No Meds Allergies/Adverse Reactions: Allergies Allergy/AdvReac Type Severity Reaction Status Date / Time No Known Allergies Allergy Verified 05/08/16 08:15 - Medications Medications: Current Medications Amlodipine Besylate (Norvasc) 10 mg PO DAILY [facility] Last Admin: 02/14/17 08:44 Dose: 10 mg Atenolol (Tenormin) 50 mg PO DAILY [facility] Last Admin: 02/14/17 08:44 Dose: 50 mg Docusate Sodium (Colace) 100 mg PO BID [facility] Last Admin: 02/14/17 08:45 Dose: 100 mg Hydralazine HCl (Apresoline) 10 mg IV Q6 PRN PRN Reason: Systolic Blood Pressure Insulin Human Lispro (Humalog) 0 units SC [facility] PRN Reason: Protocol Last Admin: 02/14/17 08:45 Dose: 3 units Lactulose (Enulose) 20 gm PO DAILY PRN PRN Reason: Constipation Morphine Sulfate (Morphine) 2 mg IVP Q4 PRN PRN Reason: Pain, severe (8-10) Last Admin: 02/14/17 08:39 Dose: 2 mg Ondansetron HCl (Zofran Inj) 4 mg IVP Q6 PRN PRN Reason: Nausea/Vomiting Tramadol HCl (Ultram) 50 mg PO Q4 PRN PRN Reason: Pain, moderate (4-7) Last Admin: 02/12/17 12:23 Dose: 50 mg Physical Exam - Head Exam Head Exam: ATRAUMATIC - Eye Exam Eye Exam: Normal appearance, Scleral icterus - ENT Exam ENT Exam: Mucous Membranes Dry - Respiratory Exam Respiratory Exam: NORMAL BREATHING PATTERN - Cardiovascular Exam Cardiovascular Exam: +S1, +S2 - GI/Abdominal Exam GI & Abdominal Exam: Normal Bowel Sounds - Extremities Exam Extremities exam: Positive for: normal inspection Results - Vital Signs Recent Vital Signs: Last Vital Signs Temp 98.2 F 02/14/17 12:04 Pulse 60 02/14/17 12:04 Resp 18 02/14/17 12:04 BP 156/65 H 02/14/17 12:04 Pulse Ox 94 L 02/14/17 12:04 - Labs Result Diagrams: 02/14/17 05:00 02/14/17 05:00 Labs: Laboratory Results - last 24 hr 02/11/17 02/14/17 02/14/17 18:41 05:00 05:00 WBC 8.2 RBC 3.68 L Hgb 10.3 L Hct 31.8 L MCV 86.3 D MCH 27.9 MCHC 32.3 L RDW 16.9 H Plt Count 263 MPV 8.9 Neut % (Auto) 48.4 L Lymph % (Auto) 29.5 [place] % (Auto) 15.8 H Eos % (Auto) 3.5 Baso % (Auto) 2.8 H Neut # 4.0 Lymph # 2.4 [place] # 1.3 H Eos # 0.3 Baso # 0.2 PT 12.2 D INR 1.1 D Sodium Potassium Chloride Carbon Dioxide Anion Gap BUN Creatinine Est GFR ( Amer) Est GFR (Non-Af Amer) Random Glucose Calcium Total Bilirubin AST ALT Alkaline Phosphatase Total Protein Albumin Globulin Albumin/Globulin Ratio Lipase Smooth Muscle Ab Titer TEST NOT PERFORMED Anti-Smooth Muscle Ab Negative Liver/Kid Microsomes Ab <=20.0 02/14/17 05:00 WBC RBC Hgb Hct MCV MCH MCHC RDW Plt Count MPV Neut % (Auto) Lymph % (Auto) [place] % (Auto) Eos % (Auto) Baso % (Auto) Neut # Lymph # [place] # Eos # Baso # PT INR Sodium 140 Potassium 4.9 Chloride 110 H Carbon Dioxide 17 L Anion Gap 18 BUN 37 H Creatinine 1.8 H Est GFR ( Amer) 32 Est GFR (Non-Af Amer) 27 Random Glucose 253 H Calcium 8.7 Total Bilirubin 22.7 H AST 82 H D ALT 94 H D Alkaline Phosphatase 927 H Total Protein 6.6 Albumin 3.1 L Globulin 3.5 Albumin/Globulin Ratio 0.9 L Lipase < 10 L Smooth Muscle Ab Titer Anti-Smooth Muscle Ab Liver/Kid Microsomes Ab Assessment & Plan (1) Pancreatic mass Assessment and Plan: likely locally advanced pancreatic cancer; f/u path results obstructive jaundice, s/p ERCP with sphincterotomy and metal stent placement CT chest for staging CA 19-9 elevated if confirmed malignancy, my feeling is the patient is too debilitated for oncologic treatment. outpatient f/u Status: Acute (2) Anemia Assessment and Plan: will check ferritin, retic count, b12, folate to further characterize Thank you for this interesting consult. Status: Acute
--- NOTE | 2017-02-14 12:17 | CP.PCM.PCO ---
Physician Communication Note - Physician Communication Note Physician Communication Note: See [facility] encounter for EUS/ERCP report.
--- NOTE | 2017-02-14 12:31 | CP.PCM.PN ---
Subjective - Date & Time of Evaluation Date of Evaluation: 02/14/17 Time of Evaluation: 12:25 - Subjective Subjective: Patient seen at bedside. present. S/P EUS with FNA and ERCP with metal stent placement. Complains of full body pain. Jaundice +. Tolerated diet this morning. Denies nausea, vomiting Objective - Vital Signs/Intake and Output Vital Signs (last 24 hours): Temp Pulse Resp BP Pulse Ox 98.2 F 60 18 156/65 H 94 L 02/14/17 12:04 02/14/17 12:04 02/14/17 12:04 02/14/17 12:04 02/14/17 12:04 - Medications Medications: Current Medications Amlodipine Besylate (Norvasc) 10 mg PO DAILY [facility] Last Admin: 02/14/17 08:44 Dose: 10 mg Atenolol (Tenormin) 50 mg PO DAILY [facility] Last Admin: 02/14/17 08:44 Dose: 50 mg Docusate Sodium (Colace) 100 mg PO BID [facility] Last Admin: 02/14/17 08:45 Dose: 100 mg Hydralazine HCl (Apresoline) 10 mg IV Q6 PRN PRN Reason: Systolic Blood Pressure Insulin Human Lispro (Humalog) 0 units SC [facility] PRN Reason: Protocol Last Admin: 02/14/17 12:18 Dose: 3 units Lactulose (Enulose) 20 gm PO DAILY PRN PRN Reason: Constipation Morphine Sulfate (Morphine) 2 mg IVP Q4 PRN PRN Reason: Pain, severe (8-10) Last Admin: 02/14/17 08:39 Dose: 2 mg Ondansetron HCl (Zofran Inj) 4 mg IVP Q6 PRN PRN Reason: Nausea/Vomiting Tramadol HCl (Ultram) 50 mg PO Q4 PRN PRN Reason: Pain, moderate (4-7) Last Admin: 02/12/17 12:23 Dose: 50 mg - Labs Labs: 02/14/17 05:00 02/14/17 05:00 PT 12.2 Seconds (9.8-13.1) D 02/14/17 05:00 INR 1.1 (0.9-1.2) D 02/14/17 05:00 APTT 38.4 Seconds (25.6-37.1) H 02/10/17 18:50 - Constitutional Appears: Non-toxic, No Acute Distress - Head Exam Head Exam: ATRAUMATIC, NORMAL INSPECTION, NORMOCEPHALIC - Eye Exam Eye Exam: Scleral icterus - ENT Exam ENT Exam: Mucous Membranes Moist - Neck Exam Neck Exam: Full ROM - Respiratory Exam Respiratory Exam: Clear to Ausculation Bilateral, NORMAL BREATHING PATTERN - Cardiovascular Exam Cardiovascular Exam: REGULAR RHYTHM, RRR, +S1, +S2 - GI/Abdominal Exam GI & Abdominal Exam: Distended, Soft, Normal Bowel Sounds Additional comments: No guarding Tenderness everywhere on palpation - Extremities Exam Extremities Exam: Full ROM - Neurological Exam Neurological Exam: Alert, Awake - Skin Skin Exam: Dry, Intact Assessment and Plan - Assessment and Plan (Free Text) Assessment: 86yo female with PMHx significant for DM, HTN and OA and endometrial CA who presented to the ED with her for generalized weakness and new onset jaundice in setting of pancreatic head mass on imaging now s/p EUS with FNB and ERCP with sphincterotomy with placement of 10x4 mm covered metal stent. Total bilirubin downtrending. Plan: - Follow FNB pathology results - BP and Blood sugar regulation as per primary team - Oncology consult will be appreciated - Tumor invading portal vein - palliative therapy ? - Discussed with team and oncologist - DVT and GI prophylaxis - Follow with oncologist for further management as outpatient
[2017-02-14] MEDS: Sodium Chloride 0.45% 1,000 ML IV SCH (17:20)
[2017-02-14] MEDS ORDERED: Insulin Detemir 100 Units/ml Inj SC SCH (22:00)
[2017-02-15 06:53] LABS: HEMOGLOBIN 9.7 g/dL (12.0-16.0); MEAN CELL VOLUME 85.8 fl (81.0-99.0); MEAN CORPUSCULAR HEMOGLOBIN 27.6 pg (27.0-31.0); MEAN CORPUSCULAR HGB CONC 32.1 g/dL (33.0-37.0); RBC 3.51 Mil/uL (3.80-5.20); WHITE BLOOD COUNT 12.4 K/uL (4.8-10.8)
[2017-02-15 07:13] LABS: ALB/GLOB RATIO 0.9 (1.0-2.1); ALT/SGPT 72 U/L (9-52); AST/SGOT 35 U/L (14-36); BLOOD UREA NITROGEN 47 mg/dl (7-17); CALCIUM 8.7 mg/dL (8.4-10.2); GFR AFRICAN-AMERICAN 29; GFR NON-AFRICAN AMERICAN 24
[2017-02-15 07:18] LABS: LIPASE < 10 U/L (23-300)
--- NOTE | 2017-02-15 07:36 | CP.PCM.PN ---
<Kerri Rueda - Last Filed: 02/15/17 12:35> Subjective - Date & Time of Evaluation Date of Evaluation: 02/15/17 Time of Evaluation: 07:31 - Subjective Subjective: Gastroenterology Fellow/PGY5 Progress Note Patient is weak and with minimal verbal response to questioning. She notes having slight abdominal discomfort. at bedside concerned that she is very weak, having minimal oral intake, and concerned of likely cancer diagnosis and not having strength to undergo chemotherapy. He is considering wanting to have the patient be "comfortable at home, follow up with specialist and to talk about what can do next, and medicine doctor to help get home". A 12-point review of systems not completed to weak state, altered mental status with baseline cognitive loss based on discussion with on functional status. Objective - Vital Signs/Intake and Output Vital Signs (last 24 hours): Temp Pulse Resp BP Pulse Ox 98.5 F 64 18 152/74 H 95 02/15/17 01:00 02/15/17 01:00 02/15/17 01:00 02/15/17 01:00 02/15/17 01:00 - Medications Medications: Current Medications Amlodipine Besylate (Norvasc) 10 mg PO DAILY [facility] Last Admin: 02/14/17 08:44 Dose: 10 mg Atenolol (Tenormin) 50 mg PO DAILY [facility] Last Admin: 02/14/17 08:44 Dose: 50 mg Docusate Sodium (Colace) 100 mg PO BID [facility] Last Admin: 02/14/17 17:11 Dose: Not Given Hydralazine HCl (Apresoline) 10 mg IV Q6 PRN PRN Reason: Systolic Blood Pressure Last Admin: 02/14/17 12:25 Dose: 10 mg Hydralazine HCl (Apresoline) 25 mg PO TID [facility] Last Admin: 02/14/17 17:19 Dose: 25 mg Sodium Chloride (Sodium Chloride 0.45%) 1,000 mls @ 60 mls/hr IV .[id number] [facility] Stop: 02/15/17 16:01 Last Admin: 02/14/17 17:20 Dose: 60 mls/hr Insulin Detemir (Levemir) 10 units SC HS [facility] Last Admin: 02/14/17 21:56 Dose: 10 units Insulin Human Lispro (Humalog) 0 units SC ACHS [facility] PRN Reason: Protocol Last Admin: 02/14/17 21:50 Dose: Not Given Lactulose (Enulose) 20 gm PO DAILY PRN PRN Reason: Constipation Morphine Sulfate (Morphine) 2 mg IVP Q4 PRN PRN Reason: Pain, severe (8-10) Last Admin: 02/14/17 08:39 Dose: 2 mg Multivitamins/Vitamin C (Multi-Delyn Liquid) 5 ml PO DAILY [facility] Ondansetron HCl (Zofran Inj) 4 mg IVP Q6 PRN PRN Reason: Nausea/Vomiting Tramadol HCl (Ultram) 50 mg PO Q4 PRN PRN Reason: Pain, moderate (4-7) Last Admin: 02/14/17 17:21 Dose: 50 mg - Labs Labs: 02/15/17 05:34 02/15/17 05:34 PT 12.2 Seconds (9.8-13.1) D 02/14/17 05:00 INR 1.1 (0.9-1.2) D 02/14/17 05:00 APTT 38.4 Seconds (25.6-37.1) H 02/10/17 18:50 - Constitutional Appears: Confused, Chronically Ill - Head Exam Head Exam: ATRAUMATIC, NORMOCEPHALIC - Eye Exam Eye Exam: PERRL, Scleral icterus Pupil Exam: PERRL. absent: Miosis, Mydriatic - ENT Exam ENT Exam: Mucous Membranes Dry, Normal Oropharynx - Neck Exam Neck Exam: Normal Inspection. absent: Tenderness - Respiratory Exam Respiratory Exam: Clear to Ausculation Bilateral. absent: Rales, Rhonchi, Wheezes - Cardiovascular Exam Cardiovascular Exam: RRR, +S1, +S2. absent: Gallop, Rubs - GI/Abdominal Exam GI & Abdominal Exam: Soft, Tenderness, Normal Bowel Sounds. absent: Distended, Firm, Guarding, Rigid, Organomegaly, Rebound Additional comments: mild B/L UQ discomfort to palpation - Extremities Exam Additional comments: 1-2+ B/L LE pitting edema - Neurological Exam Additional comments: limited exam in setting of lethargic state - Psychiatric Exam Additional comments: lethargic, unable to assess - Skin Skin Exam: Dry, Intact, Warm Additional comments: jaundice Assessment and Plan - Assessment and Plan (Free Text) Assessment: 86 year old female with history of Hypertension, Diabetes, Osteoarthritis and endometrial cancer s/p chemoradiation presenting with weakness and yellowing of skin. Active treatment of conjugated hyperbilirubinemia secondary to obstructive jaundice POD2 (02/13) EGD/EUS/ERCP/FNB showing [id number] pancreatic head mass with extrinsic duodenal bulb compression, portal vein invasion, one peripancreatic lymph node (T3N1Mx by EUS criteria), dilated CBD and PD, sphincterotomy, placement of a 10x4 mm covered metal biliary stent, and a [id number] multicystic lesion of pancreatic tail communicating with the pancreatic duct. Plan: >hyperbilirubinemia improving >awaiting FNB pathology results >Oncology managing- appreciate recommendations >supportive care: pain control >diet as tolerated, added supplement shakes >extensive discussion with family at bedside on clinical status, guarded prognosis, awaiting pathology, and multidisciplinary team management <Marietta Jones MD - Last Filed: 02/15/17 12:40> Objective - Vital Signs/Intake and Output Vital Signs (last 24 hours): Temp Pulse Resp BP Pulse Ox 98.8 F 62 18 164/63 H 94 L 02/15/17 08:24 02/15/17 08:41 02/15/17 08:24 02/15/17 08:41 02/15/17 08:24 - Medications Medications: Current Medications Amlodipine Besylate (Norvasc) 10 mg PO DAILY [facility] Last Admin: 02/15/17 08:41 Dose: 10 mg Atenolol (Tenormin) 50 mg PO DAILY [facility] Last Admin: 02/15/17 08:41 Dose: 50 mg Docusate Sodium (Colace) 100 mg PO BID [facility] Last Admin: 02/15/17 08:40 Dose: 100 mg Hydralazine HCl (Apresoline) 10 mg IV Q6 PRN PRN Reason: Systolic Blood Pressure Last Admin: 02/14/17 12:25 Dose: 10 mg Hydralazine HCl (Apresoline) 25 mg PO TID [facility] Last Admin: 02/15/17 08:38 Dose: 25 mg Sodium Chloride (Sodium Chloride 0.45%) 1,000 mls @ 60 mls/hr IV .[id number] [facility] Stop: 02/15/17 16:01 Last Admin: 02/14/17 17:20 Dose: 60 mls/hr Insulin Detemir (Levemir) 10 units SC HS [facility] Last Admin: 02/14/17 21:56 Dose: 10 units Insulin Human Lispro (Humalog) 0 units SC ACHS [facility] PRN Reason: Protocol Last Admin: 02/15/17 08:39 Dose: 4 units Lactulose (Enulose) 20 gm PO DAILY PRN PRN Reason: Constipation Morphine Sulfate (Morphine) 2 mg IVP Q4 PRN PRN Reason: Pain, severe (8-10) Last Admin: 02/14/17 08:39 Dose: 2 mg Multivitamins/Vitamin C (Multi-Delyn Liquid) 5 ml PO DAILY [facility] Last Admin: 02/15/17 08:41 Dose: 5 ml Ondansetron HCl (Zofran Inj) 4 mg IVP Q6 PRN PRN Reason: Nausea/Vomiting Tramadol HCl (Ultram) 50 mg PO Q4 PRN PRN Reason: Pain, moderate (4-7) Last Admin: 02/14/17 17:21 Dose: 50 mg - Labs Labs: 02/15/17 05:34 02/15/17 05:34 PT 12.2 Seconds (9.8-13.1) D 02/14/17 05:00 INR 1.1 (0.9-1.2) D 02/14/17 05:00 APTT 38.4 Seconds (25.6-37.1) H 02/10/17 18:50 Attending/Attestation - Attestation I have personally seen and examined this patient.: Yes I have fully participated in the care of the patient.: Yes I have reviewed all pertinent clinical information, including history, physical exam and plan: Yes Notes (Text): 02/15/17 12:39 Patient seen with Gi fellow on rounds this am. I agree with assessment and plan. 86yo female with PMHx significant for DM, HTN and OA and endometrial CA who presented to the ED with her for generalized weakness and new onset jaundice in setting of pancreatic head mass on imaging now s/p EUS with FNB and ERCP with sphincterotomy with placement of 10x4 mm covered metal stent. Total bilirubin downtrending. Plan: - Follow FNB pathology results - BP and Blood sugar regulation as per primary team - Oncology follow up upon discharge - Tumor invading portal vein - palliative therapy ? - Discussed with team and oncologist - DVT and GI prophylaxis - Follow with oncologist for further management as outpatient - Thank you for letting us participate in the care of your patient - Regular diet as tolerated
[2017-02-15 08:24] VITALS: TEMP 98.8; O2SAT 94
[2017-02-15] MEDS: Insulin Lispro (humaLOG) 100 Units/ml Inj SC SCH ×2 (08:39→12:48)
[2017-02-15] MEDS ORDERED: Multiple Vitamins Oral Solution PO SCH (09:00)
--- NOTE | 2017-02-15 09:16 | CP.PCM.DIS ---
Provider - Provider Date of Admission: 02/11/17 00:31 Attending physician: Cal Fermin MD Primary care physician: Celia Botello Consults: Gastroenterology consult Oncology consult Cardiology consult Nephrology consult Time Spent in preparation of Discharge (in minutes): 30 Hospital Course - Lab Results Lab Results: Most Recent Lab Values WBC 12.4 K/uL (4.8-10.8) H D 02/15/17 05:34 RBC 3.51 Mil/uL (3.80-5.20) L 02/15/17 05:34 Hgb 9.7 g/dL (12.0-16.0) L 02/15/17 05:34 Hct 30.1 % (34.0-47.0) L 02/15/17 05:34 MCV 85.8 fl (81.0-99.0) 02/15/17 05:34 MCH 27.6 pg (27.0-31.0) 02/15/17 05:34 MCHC 32.1 g/dL (33.0-37.0) L 02/15/17 05:34 RDW 17.0 % (11.5-14.5) H 02/15/17 05:34 Plt Count 282 K/uL (130-400) 02/15/17 05:34 MPV 8.9 fl (7.2-11.7) 02/14/17 05:00 Neut % (Auto) 48.4 % (50.0-75.0) L 02/14/17 05:00 Lymph % (Auto) 29.5 % (20.0-40.0) 02/14/17 05:00 Hyde % (Auto) 15.8 % (0.0-10.0) H 02/14/17 05:00 Eos % (Auto) 3.5 % (0.0-4.0) 02/14/17 05:00 Baso % (Auto) 2.8 % (0.0-2.0) H 02/14/17 05:00 Neut # 4.0 K/uL (1.8-7.0) 02/14/17 05:00 Lymph # 2.4 K/uL (1.0-4.3) 02/14/17 05:00 Hyde # 1.3 K/uL (0.0-0.8) H 02/14/17 05:00 Eos # 0.3 K/uL (0.0-0.7) 02/14/17 05:00 Baso # 0.2 K/uL (0.0-0.2) 02/14/17 05:00 Neutrophils % (Manual) 34 % (42-75) L 02/12/17 06:50 Band Neutrophils % 2 % (0-2) 02/10/17 17:36 Lymphocytes % (Manual) 37 % (20-50) 02/12/17 06:50 Monocytes % (Manual) 21 % (0-10) H 02/12/17 06:50 Eosinophils % (Manual) 7 % (0-7) 02/12/17 06:50 Basophils % (Manual) 1 % (0-2) 02/12/17 06:50 Metamyelocytes % 1 % (0-0) H 02/10/17 17:36 Myelocytes % 1 % (0-0) H 02/10/17 17:36 Platelet Estimate Normal (NORMAL) 02/12/17 06:50 Plt Clumps, EDTA Present 02/12/17 06:50 Large Platelets Present 02/10/17 17:36 Poikilocytosis (manual Slight 02/10/17 17:36 Anisocytosis (manual) Slight 02/12/17 06:50 Microcytosis (manual) Slight 02/10/17 17:36 Spherocytes Slight 02/10/17 17:36 Target Cells Slight 02/12/17 06:50 PT 12.2 Seconds (9.8-13.1) D 02/14/17 05:00 INR 1.1 (0.9-1.2) D 02/14/17 05:00 APTT 38.4 Seconds (25.6-37.1) H 02/10/17 18:50 pO2 38 mm/Hg (30-55) 02/10/17 22:03 VBG pH 7.45 (7.32-7.43) H 02/10/17 22:03 VBG pCO2 40 mmHg (40-60) 02/10/17 22:03 VBG HCO3 27.1 mmol/L 02/10/17 22:03 VBG Total CO2 29.0 mmol/L (22-28) H 02/10/17 22:03 VBG O2 Sat (Calc) 83.6 % (40-65) H 02/10/17 22:03 VBG Base Excess 3.5 mmol/L (0.0-2.0) H 02/10/17 22:03 VBG Potassium 4.7 mmol/L (3.6-5.2) 02/10/17 22:03 Sodium 136.0 mmol/L (132-148) 02/10/17 22:03 Chloride 109.0 mmol/L (98-107) H 02/10/17 22:03 Glucose 127 mg/dL (65-105) H 02/10/17 22:03 Lactate 0.9 mmol/L (0.7-2.1) 02/10/17 22:03 FiO2 21.0 % 02/10/17 22:03 Sodium 139 mmol/l (132-148) 02/15/17 05:34 Potassium 4.7 MMOL/L (3.6-5.0) 02/15/17 05:34 Chloride 108 mmol/L (98-107) H 02/15/17 05:34 Carbon Dioxide 21 mmol/L (22-30) L 02/15/17 05:34 Anion Gap 15 (10-20) 02/15/17 05:34 BUN 47 mg/dl (7-17) H 02/15/17 05:34 Creatinine 2.0 mg/dL (0.7-1.2) H 02/15/17 05:34 Est GFR ( Amer) 29 02/15/17 05:34 Est GFR (Non-Af Amer) 24 02/15/17 05:34 POC Glucose (mg/dL) 260 mg/dL (65-110) H 02/15/17 05:44 Random Glucose 232 mg/dL (65-105) H 02/15/17 05:34 Calcium 8.7 mg/dL (8.4-10.2) 02/15/17 05:34 Total Bilirubin 12.8 mg/dl (0.2-1.3) H 02/15/17 05:34 Direct Bilirubin 21.7 mg/ml (0.0-0.4) H 02/12/17 06:50 AST 35 U/L (14-36) 02/15/17 05:34 ALT 72 U/L (9-52) H D 02/15/17 05:34 Alkaline Phosphatase 750 U/L (38-126) H 02/15/17 05:34 Ammonia < 9 umo/L (11-51) L 02/13/17 05:35 Troponin I 0.0170 ng/mL (0.00-0.120) 02/10/17 17:36 Total Protein 6.3 G/DL (6.3-8.2) 02/15/17 05:34 Albumin 3.0 g/dL (3.5-5.0) L 02/15/17 05:34 Globulin 3.3 gm/dL (2.2-3.9) 02/15/17 05:34 Albumin/Globulin Ratio 0.9 (1.0-2.1) L 02/15/17 05:34 Lipase < 10 U/L (23-300) L 02/15/17 05:34 Alpha Fetoprotein 1.2 IU/mL (0.0-7.22) 02/11/17 06:00 CA 19-9 Antigen 951 U/mL (0-37) H 02/11/17 06:00 Venous Blood Potassium 4.7 mmol/L (3.6-5.2) 02/10/17 22:03 Urine Color Sadie (YELLOW) 02/11/17 03:46 Urine Clarity Slighty-cloudy (Clear) 02/11/17 03:46 Urine pH 6.0 (5.0-8.0) 02/11/17 03:46 Ur Specific Reading 1.005 (1.003-1.030) 02/11/17 03:46 Urine Protein 30 mg/dL (NEGATIVE) 02/11/17 03:46 Urine Glucose (UA) Neg mg/dL (Normal) 02/11/17 03:46 Urine Ketones Negative mg/dL (NEGATIVE) 02/11/17 03:46 Urine Blood Negative (NEGATIVE) 02/11/17 03:46 Urine Nitrate Negative (NEGATIVE) 02/11/17 03:46 Urine Bilirubin Negative (NEGATIVE) 02/11/17 03:46 Urine Urobilinogen 0.2-1.0 mg/dL (0.2-1.0) 02/11/17 03:46 Ur Leukocyte Esterase Neg Angelo/uL (Negative) 02/11/17 03:46 Urine RBC (Auto) 1 /hpf (0-3) 02/11/17 03:46 Urine Microscopic WBC 1 /hpf (0-5) 02/11/17 03:46 Ur Squamous Epith Cells 8 /hpf (0-5) H 02/11/17 03:46 Urine Bacteria Rare (<OCC) 02/11/17 03:46 IgG 811.6 mg/dL (700.0-1600.0) 02/11/17 18:41 BINU Screen Negative (Negative) 02/11/17 18:41 Anti-Mitochondrial Ab Negative (Negative) 02/11/17 18:41 Smooth Muscle Ab Titer TEST NOT PERFORMED 02/11/17 18:41 Anti-Smooth Muscle Ab Negative (Negative) 02/11/17 18:41 Liver/Kid Microsomes Ab <=20.0 U (<=20.0) 02/11/17 18:41 Hepatitis A IgM Ab Negative (NEGATIVE) 02/11/17 18:41 Hep Bs Antigen Negative (NEGATIVE) 02/11/17 18:41 Hep B Core IgM Ab Negative (NEGATIVE) 02/11/17 18:41 Hepatitis C Antibody Negative (NEGATIVE) 02/11/17 18:41 Blood Type O POSITIVE 02/13/17 09:30 Antibody Screen Negative 02/13/17 09:30 Crossmatch See Detail 02/13/17 09:30 BBK History Checked Patient has bt 02/13/17 09:30 - Hospital Course Hospital Course: 86 y/o lady with hx of HTN, DM, CKD stage III, came in bec of abdominal discomfort and jaundice. Patient found to have Pancreatic mass. 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 Patient is very weak and lethargic and she has poor prognosis .Family agrees that surgery is not an option and they agree not to pursue any further treatment such as chemotherapy since patient is very frail and weak and can not tolerate such treatment.Family agrees with comfort measures and care and they would like to continue such care at home. They agree for patient to be DNR/DNI. Everything was explained to and son with help of patient's advocate and certified cdc associate Mrs Maryan Tilley. Arrangements made with casework supervisor for home discharge with transport , resuming home health care services at home, hospital bed . 1. 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 Mildly-to- moderately dilated proximal CBD and [id number] intrahepatic biliary ductal dilatation due to obstruction of the distal CBD by pancreatic head mass. s/p EUS with biopsy /ERCP and stent placement LFT-s and bilirubin trending down and patient tolerating diet but has poor Po intake appears weak and lethargic patient has poor prognosis . Results discussed with and son after patient requested that everything be explained to her . Oncology consulted and case discussed with Dr. Boland. Patient to follow up biopsy results OUT PATIENT but based on her general condition comfort care is recommended and son agree with comfort measures and palliative care. Will d/c patient home with family Family aggrees with DNR/DNi status Continue pain management 2.Obstructive jaundice sec to compression of CBD by pancreatic mass Acute s/p stent placement LFT-s and bilirubin trending down 3. Abnormal LFTs (liver function tests) sec to to above Acute improving 4.Acute kidney failure on CKD stage III likely due to HTN/DM stable Nephrology consulted IVF hydration held ACEI 5. Hypertension uncontrolled/Hypertensive Urgency Chronic started Norvasc and Atenolol stared Hydralazine 25 mg PO TID ECHO: EF=45%, mod Pulm HTN d/c ACEI cardio consult appreciated 6.Type 2 diabetes mellitus Chronic accucheck with coverage started diabetic diet held po meds started Levemir 10 units HS 7.Anemia, chronic disease Chronic likely worsened by hydration transfused 2 units PRBC- hgb now 10 continue Protonix 8. 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 DVT prophylaxis no anticoag since patient is coagulopathic Discharge Exam - Head Exam Head Exam: ATRAUMATIC, NORMOCEPHALIC Additional comments: lethargic, jaundiced , weak - Eye Exam Eye Exam: EOMI, PERRL - ENT Exam ENT Exam: Mucous Membranes Moist, Normal Exam - Neck Exam Neck exam: Normal Inspection - Respiratory Exam Respiratory Exam: Clear to PA & Lateral, NORMAL BREATHING PATTERN. absent: Rhonchi, Wheezes, Respiratory Distress - Cardiovascular Exam Cardiovascular Exam: REGULAR RHYTHM. absent: JVD - GI/Abdominal Exam GI & Abdominal Exam: Normal Bowel Sounds, Soft. absent: Distended, Guarding, Rebound, Tenderness - Rectal Exam Rectal Exam: Deferred - Extremities Exam Extremities exam: normal inspection, pedal edema (1 +) - Neurological Exam Additional comments: lethargic. weak AAOx3 - Psychiatric Exam Psychiatric exam: Flat Affect - Skin Skin Exam: Dry, Warm Additional comments: jaundiced Discharge Plan - Discharge Medications Prescriptions: amLODIPine [Norvasc] 10 mg PO DAILY #30 tab Atenolol [Tenormin] 50 mg PO DAILY #30 tab Docusate [Colace] 100 mg PO BID #60 cap hydrALAZINE [Apresoline] 25 mg PO TID #90 tab Multivitamin [Multi-Delyn Liquid] 5 ml PO DAILY #150 syr traMADol [Ultram] 50 mg PO Q4 PRN #30 tab PRN Reason: Pain, Severe (8-10) - Follow Up Plan Condition: CRITICAL Disposition: HOME/ ROUTINE Patient education suggested?: Yes Instructions: Pancreatic Cancer (DC), Jaundice (DC) Referrals: Bradly Boland MD [Staff Provider] -
--- NOTE | 2017-02-15 11:08 | CP.PCM.PN ---
Subjective - Date & Time of Evaluation Date of Evaluation: 02/15/17 Time of Evaluation: 11:06 - Subjective Subjective: awake in bed no new event reported poor intake Objective - Vital Signs/Intake and Output Vital Signs (last 24 hours): Temp Pulse Resp BP Pulse Ox 98.8 F 62 18 164/63 H 94 L 02/15/17 08:24 02/15/17 08:41 02/15/17 08:24 02/15/17 08:41 02/15/17 08:24 - Medications Medications: Current Medications Amlodipine Besylate (Norvasc) 10 mg PO DAILY [facility] Last Admin: 02/15/17 08:41 Dose: 10 mg Atenolol (Tenormin) 50 mg PO DAILY [facility] Last Admin: 02/15/17 08:41 Dose: 50 mg Docusate Sodium (Colace) 100 mg PO BID [facility] Last Admin: 02/15/17 08:40 Dose: 100 mg Hydralazine HCl (Apresoline) 10 mg IV Q6 PRN PRN Reason: Systolic Blood Pressure Last Admin: 02/14/17 12:25 Dose: 10 mg Hydralazine HCl (Apresoline) 25 mg PO TID [facility] Last Admin: 02/15/17 08:38 Dose: 25 mg Sodium Chloride (Sodium Chloride 0.45%) 1,000 mls @ 60 mls/hr IV .[id number] [facility] Stop: 02/15/17 16:01 Last Admin: 02/14/17 17:20 Dose: 60 mls/hr Insulin Detemir (Levemir) 10 units SC HS [facility] Last Admin: 02/14/17 21:56 Dose: 10 units Insulin Human Lispro (Humalog) [address] [facility] PRN Reason: Protocol Last Admin: 02/15/17 08:39 Dose: 4 units Lactulose (Enulose) 20 gm PO DAILY PRN PRN Reason: Constipation Morphine Sulfate (Morphine) 2 mg IVP Q4 PRN PRN Reason: Pain, severe (8-10) Last Admin: 02/14/17 08:39 Dose: 2 mg Multivitamins/Vitamin C (Multi-Delyn Liquid) 5 ml PO DAILY [facility] Last Admin: 02/15/17 08:41 Dose: 5 ml Ondansetron HCl (Zofran Inj) 4 mg IVP Q6 PRN PRN Reason: Nausea/Vomiting Tramadol HCl (Ultram) 50 mg PO Q4 PRN PRN Reason: Pain, moderate (4-7) Last Admin: 02/14/17 17:21 Dose: 50 mg - Labs Labs: 02/15/17 05:34 02/15/17 05:34 PT 12.2 Seconds (9.8-13.1) D 02/14/17 05:00 INR 1.1 (0.9-1.2) D 02/14/17 05:00 APTT 38.4 Seconds (25.6-37.1) H 02/10/17 18:50 - Constitutional Appears: No Acute Distress - ENT Exam ENT Exam: Mucous Membranes Dry - Respiratory Exam Respiratory Exam: NORMAL BREATHING PATTERN. absent: Chest Wall Tenderness - Cardiovascular Exam Cardiovascular Exam: absent: JVD, Rubs - Extremities Exam Extremities Exam: absent: Calf Tenderness - Back Exam Back Exam: absent: CVA tenderness (L), CVA tenderness (R) - Neurological Exam Neurological Exam: Altered Assessment and Plan (1) Acute kidney failure Assessment & Plan: cret. going up to 2 bilirubin coming down suggest IV hydration with D51/2 NS Status: Acute (2) Elevated transaminase level Status: Acute (3) Jaundice Status: Acute (4) Obstructive jaundice Status: Acute (5) Pancreatic mass Status: Acute
[2017-02-15] MEDS: Sodium Chloride 0.45% 1,000 ML IV SCH (12:40)
[2017-02-15 12:49] VITALS: BP 142/62; PULSE 59
== END 2017-02-15 15:13 | disposition home health service (06) | DRG 435 ==
LOC: H.ER 16:41 → H.EROBSV 21:23 → OBSVTOIN 02-11 00:31 → H.ERHOLD 02-11 00:31 → H.MEDSURG1 02-11 14:36 → H.TEL 02-12 22:53
PROVIDERS: ADMIT Internal Medicine; ATTEND Internal Medicine
PROC: 30233N1 Transfusion of Nonautologous Red Blood Cells into Peripheral Vein, Percutaneous Approach (ICD-10-PCS; principal; 2017-02-13)
DX: C25.0 Malignant neoplasm of head of pancreas (principal); K83.1 Obstruction of bile duct; N17.9 Acute kidney failure, unspecified; D68.4 Acquired coagulation factor deficiency; N18.3 Chronic kidney disease, stage 3 (moderate); E11.22 Type 2 diabetes mellitus with diabetic chronic kidney disease; F03.90 Unspecified dementia, unspecified severity, without behavioral disturbance, psychotic disturbance, mood disturbance, and anxiety; D63.8 Anemia in other chronic diseases classified elsewhere; I16.0 Hypertensive urgency; I12.9 Hypertensive chronic kidney disease with stage 1 through stage 4 chronic kidney disease, or unspecified chronic kidney disease; K76.9 Liver disease, unspecified; Z66 Do not resuscitate; Z85.42 Personal history of malignant neoplasm of other parts of uterus; Z90.710 Acquired absence of both cervix and uterus